=== PATIENT | female | born 1955 | race Caucasian/White ===

== ENCOUNTER 2024-02-09 14:44 | Inpatient (IN) | payer MEDICARE, SELFPAY ==
[2024-02-09 15:08] VITALS: BP 111/63; PULSE 93; RESP 20; TEMP 36.4; O2SAT 99
[2024-02-09] MEDS: Ipratropium/Albuterol Sulfate 3 ML AMPUL.NEB INHALATION (17:18)
[2024-02-09 17:19] VITALS: PULSE 91; RESP 24; O2SAT 96
[2024-02-09] MEDS: Budesonide Respules 0.5 MG/2 ML AMPUL.NEB. INHALATION (17:19)
[2024-02-09 17:25] VITALS: BP 111/63; PULSE 93; RESP 20; TEMP 36.4; O2SAT 99
--- NOTE | 2024-02-09 19:42 | HP.PCM_ITS ---
HPI - General General Date of Admission: 02/09/24 Date of Service: 02/09/24 Chief Complaint: Here for 3 hours daily rehabilitation. HPI Narrative MAX ALFORD, is a 68 Female who presents with followin01/31/2024 Admit to [facility]. 68 year old female with past medical history of CAD, HTN, Hyperlipidemia, PAOD, TIA, COPD, pulmonary emphysema, chronic HFpEF, admitted to the ICU post TNK. She was sent to the [facility] ED by Dr. Cabrera, her fitness club manager after feeling dizzy, off balance, lightheaded, and as if the room was spinning that is worsened when turning her head. She also reported worsening chest pain on exertion with dyspnea and numbness, weakness on her right upper extremity that started today. Recently on prednisone for COPD exacerbation. Afebrile, tachycardic at 110, on baseline oxygen 4 liters per nasal cannula. Brain attack called due to vertigo, right arm numbness, subjective weakness, truncal ataxia. CT head negative, CT abdomen/pelvis negative for aortic dissection. On-call neurologist recommended TNK, TNK given at 1610. CTA neck showed right carotid bulb 25% narrowing, left carotid bulb narrowing 35 to 40%. Prednisone 40mg given, Duoneb x 3 for increased work of breathing. Repeat CT head negative. MRI brain negative for stroke. Carotid doppler showed < 50% stenosis bilaterally. Echo EF 78%, mild to moderate TR. Orthostatics negative. Neurology suspects ongoing vertigo is not related to stroke, recommend vestibular PT. PT recommended acute rehab. 02/08/2024 Feeling improved, read to go to . 02/09/2024 Admit to for 3 hours daily rehabilitation, strengthening, prior to discharge home. [facility] Medical History (Updated 02/09/24 @ 20:[address] Orlin Gardner MD) TIA (transient ischemic attack) SOB (shortness of breath) Depression Peripheral artery disease Glaucoma Cataract Myocardial infarct HTN (hypertension) Hyperlipemia, mixed GERD (gastroesophageal reflux disease) Emphysema lung CHF (congestive heart failure) Anemia Cerebrovascular accident (CVA) Occlusion and stenosis of other cerebral arteries Stroke-like symptoms COPD (chronic obstructive pulmonary disease) Vertigo Diverticulitis Home Medications ?Medication ?Instructions ?Recorded ?Last Taken ?Type albuterol sulfate 90 mcg/actuation 2 puff inhalation Q4H PRN sob, 02/09/24 Unknown History aerosol inhaler wheezing alendronate 70 mg tablet 70 mg PO QWEEK osteoporosis 02/09/24 02/05/24 History aspirin 81 mg chewable tablet 1 tab PO DAILY heart health 02/09/24 02/09/24 History atorvastatin 40 mg tablet (Lipitor) 40 mg PO QHS cholesterol 02/09/24 02/08/24 History budesonide 160 mcg-glycopyr 9 2 inh inhalation BID sob, wheezing 02/09/24 Unknown History mcg-formot 4.8 mcg/actuation HFA inhaler (Breztri Aerosphere) calcium carbonate (Calcium 500) 1,000 mg PO DAILY supplement 02/09/24 Unknown History cholecalciferol (vitamin D3) 25 1,000 unit PO DAILY supplement 02/09/24 02/09/24 History mcg (1,000 unit) capsule cyanocobalamin (vitamin B-12) 1,000 mcg PO DAILY supplement 02/09/24 02/09/24 History 1,000 mcg capsule ferrous sulfate 325 mg (65 mg 325 mg PO DAILY supplement 02/09/24 02/09/24 History iron) tablet icosapent ethyl 1 gram capsule 1 g PO DAILY cholesterol 02/09/24 02/09/24 History (Vascepa) metoprolol succinate 25 mg 25 mg PO DAILY blood pressure 02/09/24 02/08/24 History tablet,extended release 24 hr nystatin 100,000 unit/gram topical 1 applic topical BID readness 02/09/24 02/09/24 History powder (Nystop) sacubitril 49 mg-valsartan 51 mg 1 tab PO BID blood pressure 02/09/24 02/08/24 History tablet (Entresto) sodium chloride 0.65 % nasal spray 2 spray intranasal Q2H PRN dry 02/09/24 02/09/24 History aerosol (Deep Sea Nasal) nasal passages spironolactone 25 mg tablet 12.5 mg PO DAILY blood pressure 02/09/24 02/08/24 History ticagrelor 90 mg tablet (Brilinta) 90 mg PO BID CAD 02/09/24 Unknown History Allergy/AdvReac Type Severity Reaction Status Date / Time acetylcysteine Allergy Unknown bronchospam Verified 02/09/24 14:58 Family History (Updated 02/09/24 @ 15:53 by Susan Peterson) Mother Arthritis Diabetes Breast cancer Heart disease Hypertension CVA (cerebral vascular accident) Mother No problems noted. Father Alcohol abuse COPD (chronic obstructive pulmonary disease) CVA (cerebral vascular accident) Brother Alcohol abuse COPD (chronic obstructive pulmonary disease) Cancer Daughter Asthma Surgical History (Updated 02/09/24 @ 19:[address] Orlin Gardner MD) History of procedure for peripheral vascular disease History of coronary artery stent placement History of History of cataract surgery History of cardiac catheterization History of hysterectomy Social History (Updated 02/09/24 @ 19:[address] Orlin Gardner MD) household members: children Smoking Status: Former smoker alcohol intake: never substance use type: does not use ROS Constitutional Constitutional: Denies chills, fever(s) or weight gain ENT HEENT: Denies headache(s), nasal congestion or nasal discharge Cardiovascular Cardiovascular: Denies chest pain or palpitations Respiratory/Chest Respiratory/Chest: Denies cough, excessive phlegm production or shortness of breath with exertion Gastrointestinal Gastrointestinal: Denies abdominal pain, nausea or vomiting Genitourinary Genitourinary: Denies dysuria Musculoskeletal Musculoskeletal: Denies joint pain or joint swelling Integumentary Integumentary: Denies rash or wounds Neurologic Neurologic: Denies focal weakness, numbness or tingling Psychiatric Psychiatric: Denies anxiety, auditory hallucinations, depression, homicidal ideation or suicidal ideation Vital Signs Vital Signs Vital Signs: 02/09/24 15:08 02/09/24 17:19 02/09/24 17:19 Temperature 97.6 F L Temperature Source Temporal Pulse Rate 93 91 Respiratory Rate 20 H 24 H Respiratory Pattern Tachypnea Blood Pressure 111/63 Blood Pressure Mean 79 Blood Pressure Source Monitor Blood Pressure Position Sitting Blood Pressure Location Right Arm Pulse Ox 99 96 Oxygen Delivery Method Nasal Cannula Nasal Cannula Oxygen Flow Rate (L/min) 2 02/09/24 17:25 Temperature 97.6 F L Temperature Source Temporal Pulse Rate 93 Respiratory Rate 20 H Respiratory Pattern Blood Pressure 111/63 Blood Pressure Mean 79 Blood Pressure Source Monitor Blood Pressure Position Sitting Blood Pressure Location Right Arm Pulse Ox 99 Oxygen Delivery Method Nasal Cannula Oxygen Flow Rate (L/min) 2 Indicators for Scoring Admitted with or Primary Diagnosis of CVA/Stroke: Yes Hx of CVA/Stroke: Yes Modified [place] Score MRS Score at time of Evaluation: 3-Moderate disability NIHSS NIHSS 1a. Level of Consciousness: Alert; keenly responsive 1b. LOC Questions: Answers BOTH questions correctly. 1c. LOC Commands: Performs both tasks correctly. 2. Best Gaze: Normal 3. Visual: No visual loss 4. Facial Palsy: Normal symmetrical movements 5a. Left Arm: No drift; arm holds 90 (or 45) degrees for full 10 seconds 5b. Right Arm: No drift; arm holds 90 (or 45) degrees for full 10 seconds 6a. Left Leg: No drift; leg holds 30-degree position for full 5 seconds 6b. Right Leg: No drift; leg holds 30-degree position for full 5 seconds 7. Limb Ataxia: Absent 8. Sensory: [id number] sensory loss; 9. Best Language: No aphasia; normal 10. Dysarthria: Normal 11. Extinction and Inattention: No abnormality Total: 1 Stroke Questions Stroke Team Activated: Yes a.Reviewed Inclusion/Exclusion criteria: Yes Was Patient considered for Endovascular Intervention?: No IV Thrombolytic Administered: Yes No contraindications from thrombolytic administration: Yes Risks, Benefits, Alternatives Discussed: Yes Physical Exam Const alert General Appearance: cooperative HEENT normocephalic Eyes PERRL and EOMs intact bilaterally Neck supple, no JVD and no carotid bruits Resp normal respiratory effort, normal air movement and clear to auscultation bilaterally Cardio regular rate and regular rhythm GI normal to inspection, nondistended, normoactive bowel sounds, non-tender and non-distended Extremity normal capillary refill General Extremity: Negative for edema Skin no rashes or lesions noted General Skin Exam: no breakdown Psych affect normal Appearance: appropriate Assessment & Plan Assessment/Plan (1) Debility: (2) TIA (transient ischemic attack): (3) Vertigo: (4) Osteoporosis: (5) COPD (chronic obstructive pulmonary disease): (6) Hyperlipidemia: (7) Calcium deficiency: (8) Vitamin D deficiency: (9) Vitamin B12 deficiency: (10) Iron deficiency anemia: (11) Coronary artery disease: (12) Chronic heart failure with preserved ejection fraction (HFpEF): PLAN: Plan 68 year old female with below past medical history hospitalized for stroke symptoms, TNK administered, MRI brain negative for stroke, admitted to with debility, here for 3 hours daily rehabilitation, strengthening, prior to discharge home. * Debility - PT/OT/ST. * Pain - Tylenol 650mg q6 prn. * Bowel - senna/colace 2 tablets bid, Dulcolax 10mg pr x 1 prn, MOM 30ml po x 1 pm. * DVT prophylaxis - Hold, on dual antiplatelet therapy. * COPD - Budesonide 0.5mg inhaled Q12, Duoneb 3ml q6wa, Albuterol 2 puffs q4 prn. * Osteoporosis - Alendronate 70mg qweek. * TIA - Aspirin 81mg daily. Brilinta 90mg bid. * Hyperlipidemia - Atorvastatin 40mg qhs, Vascepa 1gm daily. * Calcium deficiency - Calcium 1000mg daily. * Vitamin D deficiency - D3 25mcg daily. * Vitamin B12 deficiency - B12 1000mcg daily. * Iron deficiency anemia - Ferrous sulfate 325mg daily. * HFpEF - Metoprolol succinate 25mg daily, Entresto 49/51mg bid, Wtdqmgywl80.5mg daily. * Coronary artery disease - Metoprolol succinate 25mg daily, Brilinta 90mg bid, Aspirin 81mg daily. * Tinea Corporis - Nystatin powder topical bid. * Dry nose - sodium chloride 2 sprays q2h prn.
[2024-02-09 20:00] VITALS: PULSE 93; RESP 20; O2SAT 99
[2024-02-09] MEDS: Albuterol IH (6.7 GM) 1 PUFF INHALER 2 PUFF INHALATION (20:17)
[2024-02-09] MEDS: Atorvastatin Calcium 40 MG Tablet PO (20:21)
[2024-02-09] MEDS: Senna/Docusate Sodium 1 Tablet 2 TABLET PO (20:21)
[2024-02-09] MEDS: Nystatin Powder 15gm Bottle 1 APPLIC TOPICAL (20:22)
[2024-02-09] MEDS: TICAGRELOR 90 MG TABLET PO (20:22)
[2024-02-09] MEDS: SACUBITRIL/VALSARTAN 49-51 MG TABLET 1 EACH PO (20:22)
[2024-02-09 22:00] VITALS: BMI 25.7
--- NOTE | 2024-02-09 22:46 | NURSING ---
pt assisted to the bcs and then became sob and breathing through pursed lips. staff assisted pt to the bed and spo2 was checked and was 100% on ra. pt stated this is what always happens my spo2 is fine but i become very sob like i'm breathing through a straw. unable to give breathing tx d/t not time. rn to call hospitalist
--- NOTE | 2024-02-09 22:52 | PCM.HOSP.N ---
Hospitalist Note Patient requesting change to her albuterol. Will transition to neb albuterol per RT q 2 hours PRN. Patient also noting high anxiety and specifically requesting something to help her calm down. Will trial low dose buspar x 1.
--- NOTE | 2024-02-09 22:54 | NURSING ---
After transfering from BSC to bed, pt was struggling with SOB. Pt was becoming anxious and asking when next breathing treatment was due. This RN paged Hospitalist re: SOB @ 22:45 for pt with no breathing treatment available under current MAR regime. Pt was anxious and pursed lip breathing. SpO2 was @ 100% and O2 @ 2L. Hospitalist, Dr Ibarra, put in a N/O for Albuterol 2.5mg Q2H/PRN and Buspar X1 dose of 5mg tab for anxiety. GLUE BONE CRUSHER called RT to admin breathing tx.
[2024-02-09 23:05] VITALS: PULSE 109; RESP 26; O2SAT 97
[2024-02-09] MEDS: Albuterol 2.5 MG/3 ML VIAL.NEB. INHALATION (23:05)
[2024-02-09] MEDS: busPIRone 5 MG Tablet PO (23:20)
[2024-02-10] VITALS (12 sets, daily range): BP systolic 96–110; BP diastolic 48–66; PULSE 77–120; RESP 18–28; TEMP 36.7–36.8; O2SAT 96–99; BMI 25.7
[2024-02-10] MEDS: Albuterol 2.5 MG/3 ML VIAL.NEB. INHALATION ×4 (03:09→23:30)
[2024-02-10 05:48] LABS: Absolute Lymphocyte Count 2.42 X10^3/uL (0.83-4.51); Absolute Neutrophil Count 6.8 X10^3/uL (2.0-7.7); Basophil# 0.07 X10^3/uL; Basophil% 0.6 % (0-1); Eosinophil# 0.41 X10^3/uL; Eosinophils% 3.7 % (0-5); Hematocrit 29.1 % (37-47); Hemoglobin 9.3 g/dL (12.0-15.0); Lymphocyte # 2.42 X10^3/ul (0.83-4.51); Lymphocyte % 22.1 % (19-41); Mean Corpuscular Hgb 29.8 pg (27.0-32.0); Mean Corpuscular Volume 93.3 fL (81-99); Mean Platelet Vol. 9.7 fl (6.2-12.0); Monocyte% 7.3 % (0-10); NRBC Flagged by Analyzer 0.2 % (0-5); Neutrophil # 6.81 X10^3/uL (2.7-7.7); Neutrophil % 62.3 % (47-70); Platelet Count 286 K/mm3 (150-450); RBC Distribution Width CV 14.9 % (11.6-14.6); RBC Distribution Width SD 50.6 fl (35.1-43.9); Red Blood Count 3.12 M/mm3 (4.2-5.4)
[2024-02-10 06:42] LABS: ALB/GLOB Ratio 0.9 RATIO (0.9-2.4); AST(SGOT) 19 U/L (15-37); Alanine Aminotransfer ALT/SGPT 26 U/L (13-56); Albumin, Serum 2.9 g/dL (3.2-5.0); Alkaline Phosphatase 83 U/L (45-117); Anion Gap 6 (5-15); BUN 20 mg/dL (7-18); BUN/Creat Ratio 23.1 RATIO (10-20); Chloride 104 mmol/L (98-107); Creatinine, Serum 0.87 mg/dL (0.55-1.02); EST Glomerular Filtration Rate 69 mL/min (>60); Est Glom Filt Rate - Afr Amer 83 mL/min (>60); Estimated Creatinine Clearance 55.69 ml/min; Globulin 3.2 g/dL (2.2-4.2); Glucose 122 mg/dL (74-106); Phosphorus 3.5 mg/dL (2.5-4.9); Potassium 3.9 mmol/L (3.5-5.1); Protein, Total 6.1 g/dL (6.4-8.2); Sodium Level 136 mmol/L (136-145)
[2024-02-10] MEDS: Calcium (Elemental) 500 MG Tablet 1000 MG PO (08:10)
[2024-02-10] MEDS: Cholecalciferol (VIT D3) 25 MCG TABLET (1,000 UNITS) PO (08:10)
[2024-02-10] MEDS: TICAGRELOR 90 MG TABLET PO ×2 (08:10→21:00)
[2024-02-10] MEDS: Cyanocobalamin 500 MCG Tablet 1000 MCG PO (08:10)
[2024-02-10] MEDS: Senna/Docusate Sodium 1 Tablet 2 TABLET PO (08:11)
[2024-02-10] MEDS: Aspirin 81 MG TAB.CHEW PO (08:11)
[2024-02-10] MEDS: Ferrous Sulfate 325 MG Tablet PO (08:11)
[2024-02-10] MEDS: Spironolactone 25 MG Tablet 12.5 MG PO (08:13)
[2024-02-10] MEDS: SACUBITRIL/VALSARTAN 49-51 MG TABLET 1 EACH PO (08:13)
[2024-02-10] MEDS: Metoprolol(XL)Succ 25 MG Tablet PO (08:13)
[2024-02-10] MEDS: Budesonide Respules 0.5 MG/2 ML AMPUL.NEB. INHALATION ×2 (08:15→19:00)
[2024-02-10] MEDS: Ipratropium/Albuterol Sulfate 3 ML AMPUL.NEB INHALATION ×2 (08:15→19:00)
--- NOTE | 2024-02-10 09:31 | PCM.PROGNOTE ---
Subjective Subjective Afebrile VSS -persistently tachycardic since last evening with a heart rate ranging from 102 2018. Blood pressure is ranged from 103/61 to 111/63 since last evening. Respiratory rate is increased mildly and ranged from 20-28. She was 99% on room air this morning. Maintaining appropriate oxygen saturation on RA Oral intake - FOOD good FLUIDS poor Discussed with nursing - nursing reports the patient is very anxious. Needs a lot of reassurance. She was given 1 dose of BuSpar 5 mg last night by the night hospitalist. Reviewed the THERAPY notes Medication list reviewed. Receiving aerosolized budesonide twice daily. Also on ipratropium every 6 hours. Albuterol is ordered as needed for dyspnea. All lab drawn this morning was personally reviewed. White blood cell count is 11. Hemoglobin is 9.3 with an MCV of 93.3 and an elevated RDW. Platelets are within normal limits. Differential is unremarkable. Sodium is 136 and the potassium is 3.9. Serum bicarb is normal at 26. The BUN is elevated at 20 with a creatinine of 0.87. We have no baseline lab on this patient. Fasting glucose is elevated at 122. Phosphorus and magnesium are normal. LFTs are unremarkable EMR/H&P reviewed. Past medical history is significant for coronary artery disease, history of PCI, hypertension, hyperlipidemia, TIA, COPD, chronic heart failure with preserved ejection fraction, diverticulosis and peripheral vascular disease, history of femoral stent. Was admitted to [facility] on 01/31/2024 with complaints of vertigo, paresthesias right arm, subjective weakness and truncal ataxia. Stat noncontrast CT brain was negative and she received TNK. CTA of the neck showed no significant vascular disease. Brain MRI was negative for stroke. Echocardiogram showed a 78% EF with mild to moderate TR. n she had been taking Prednisone 50 mg daily for 14 days and then abruptly stopped with njo taper. She [id number] takes steroids for smothering. Denies cough. Quit smoking 2 years ago....started at 12 YOA. 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 Took a few doses of Valium a few years ago and it really helped her breathing. Has never been treated for anxiety or depression. Tells me that it sometimes takes hours for her to fall asleep at night and then she can not stay asleep. she has been tested for KENNY and tested negative. Naps during the day and feels exhausted. Denies any history of pulmonary emboli/DVT. Chronically using her rescue inhaler every 2 hours. Objective Data Objective Data Vital Signs: Vital Signs Temp Pulse Resp BP Pulse Ox O2 Del Method O2 Flow Rate 98.2 F 118 H 28 H 103/61 96 Nasal Cannula 2 02/10/24 05:04 02/10/24 08:15 02/10/24 08:15 02/10/24 05:05 02/10/24 08:13 02/10/24 08:13 02/10/24 08:13 Oxygen Flow Rate (L/min) 2 Oxygen Delivery Method Nasal Cannula Weight: 145 lb 4.554 oz Body Mass Index (BMI) 25.7 Intake & Output: Intake and Output for Last 24 Hours 02/08/24 02/09/24 02/10/24 23:59 23:59 23:59 Intake Total 400 / 400 200 / 200 Output Total 300 / 300 650 / 650 Balance 100 / 100 -450 / -450 Lab / Micro Data 02/10/24 05:15 02/10/24 05:15 Labs: Laboratory Results - last 24 hr 02/10/24 05:15: WBC 11.0, RBC 3.12 L, Hgb 9.3 L, Hct 29.1 L, MCV 93.3, MCH 29.8, MCHC 32.0, RDW Std Deviation 50.6 H, RDW Coeff of Matty 14.9 H, Plt Count 286, MPV 9.7, Immature Gran % (Auto) 4.000 H, Neut % (Auto) 62.3, Lymph % (Auto) 22.1, [place] % (Auto) 7.3, Eos % (Auto) 3.7, Baso % (Auto) 0.6, Absolute Neuts (auto) 6.8, Absolute Lymphs (auto) 2.42, Nucleated RBC % 0.2, Sodium 136, Potassium 3.9, Chloride 104, Carbon Dioxide 26.0, Anion Gap 6, BUN 20 H, Creatinine 0.87, Estim Creat Clear Calc 55.69, Est GFR (MDRD) Af Amer 83, Est GFR (MDRD) Non-Af 69, BUN/Creatinine Ratio 23.1 H, Glucose 122 H, Calcium 9.0, Phosphorus 3.5, Magnesium 2.0, Total Bilirubin 0.30, AST 19, ALT 26, Alkaline Phosphatase 83, Total Protein 6.1 L, Albumin 2.9 L, Globulin 3.2, Albumin/Globulin Ratio 0.9 Physical Exam Const alert Constitutional Narrative: she is pursed lip breathing long after she is at rest. Can speak in long sentences and paragraphs with no conversational dyspnea but, the minute she is not talking she is pursed lip breathing again. I watched her do the IS. she did 5 breaths......the first was between 750-1,000 and by breath 5 she was down to 500. Very poor exercise tolerance. Does not exercise........has been in pulmonary rehab in the past but, not recently. Anxious. General Appearance: cooperative HEENT normocephalic HEENT Narrative: No facial asymmetry Resp Resp Narrative: Pursed lip breathing when she is not speaking but she has no conversational dyspnea and can complete multiple strong together sentences with no shortness of breath. No cough. No wheezing. Few coarse crackles in both bases, left greater than right. No accessory muscle use. Pendulous breasts. Tells me she used to weigh 99 pounds but the steroids increased her weight which is currently 145 pounds. Cardio Cardio Narrative: Distant heart sounds. No murmur appreciated. Heart rate is increased into the low 100s even at rest. No gallop. GI normal to inspection, nondistended, normoactive bowel sounds, soft to palpation and non-tender GI Narrative: truncal obesity. Psych thought process normal and cooperative Psych Narrative: talkative and pleasant. Having panic attacks........associates this with smothering but, no wheezing with fair air exchange and no conversational dyspnea. Appearance: appropriate Mood & Affect: anxious Assessment & Plan Assessment/Plan (1) Debility: (2) TIA (transient ischemic attack): (3) Coronary artery disease: QUALIFIERS: Associated angina: unspecified whether angina present Coronary Disease-Associated Artery/Lesion type: unspecified vessel or lesion type [place] vs. transplanted heart: [place] heart Qualified Code(s): I25.10 - Atherosclerotic heart disease of [place] coronary artery without angina pectoris (4) Chronic heart failure with preserved ejection fraction (HFpEF): (5) COPD (chronic obstructive pulmonary disease): QUALIFIERS: COPD type: emphysema Emphysema type: unspecified Qualified Code(s): J43.9 - Emphysema, unspecified (6) Anxiety disorder due to general medical condition with panic attack: (7) Tachycardia: (8) Impaired exercise tolerance: (9) Chronic insomnia: PLAN: Plan 1. Continue therapy 2. Xanax 0.25 mg p.o. now 3. Start BuSpar 5 mg p.o. 3 times daily 4. Check a TSH due to tachycardia 5. Patient is on very frequent steroids and was recently on high-dose steroids for 14 days with no taper. Will check a Cortrosyn stim test today. 6. We discussed the contribution of uncontrolled anxiety to her perceived SOB and the need to treat the anxiety to decrease her SOB. 7. Klonopin 0.5 mg at HS X 2 doses. 8. Hemoccult stool 9. Check iron studies Charges/Coding Visit Charges Inpatient E&M: 64557 Subs Hosp L2
[2024-02-10 10:09] LABS: Hemoglobin A1c 6.8 % (3.8-5.6)
[2024-02-10 11:35] LABS: Ferritin 471 ng/mL (8-252); Iron 61 ug/dL (50-170); Iron Binding Capacity,Total 341 ug/dL (250-450); PERCENT IRON SATURATION 17.9 % (15.0-55.0); T4 Free Direct 0.89 ng/dL (0.76-1.46)
[2024-02-10] MEDS: ALPRAZolam 0.25 MG Tablet PO (12:03)
[2024-02-10] MEDS: busPIRone 5 MG Tablet PO ×2 (14:09→21:00)
--- NOTE | 2024-02-10 14:35 | CASEMGMT ---
Social Work SW met with patient to complete initial assessment. Throughout discussion, pt made comments on having financial strain. SW explored Medicaid to assist. Pt stated she has funds in her savings to pay for expenses which makes her over resources for [facility]. SW educated to turning those funds over to the home, make it irrevocable, and it will be out of her personal savings, which will not count as assets. SW explained she can arrange that during her stay, if she wishes. Pt interested. SW explained this worker can still make a Care Coordination referral to assist with connecting her with community resources, such as transportation, but to notify this worker if pt does contact the home, and SW can refer to [facility] for [facility] application completion. Pt expressed understanding. SW placed Care Coordination referral via secure website. Will continue to follow for DC planning and support. LILIAM Tan
--- NOTE | 2024-02-10 14:58 | CASEMGMT ---
Social Work SW requested pt have dtr provide copies of advanced directives. Meli Reyna, IRRIGATION TECHNICIAN SPRINKLING SYSTEM IRRIGATOR
[2024-02-10] MEDS: clonazePAM 0.5 MG Tablet PO (21:00)
[2024-02-10] MEDS: Atorvastatin Calcium 40 MG Tablet PO (21:00)
--- NOTE | 2024-02-10 23:54 | NURSING ---
Pt to have cortisol lab draw in am, and will need IV access, pt is awake and ok with IV start, attempted x2, unsuccessful, RN supervisor home restoration service called to try.
[2024-02-11] VITALS (10 sets, daily range): BP systolic 100–116; BP diastolic 61–70; PULSE 75–105; RESP 18–20; TEMP 36.3–36.7; O2SAT 92–100; BMI 25.9
--- NOTE | 2024-02-11 01:08 | NURSING ---
RN air traffic supervisor attempted to start IV, unsuccessful x3, pt refusing to let staff attempt again at this time, will reevaluate in AM and talk to Dr. Cameron about options.
[2024-02-11] MEDS: busPIRone 5 MG Tablet PO ×3 (05:34→21:11)
[2024-02-11] MEDS: Budesonide Respules 0.5 MG/2 ML AMPUL.NEB. INHALATION ×2 (06:10→21:31)
[2024-02-11] MEDS: Albuterol 2.5 MG/3 ML VIAL.NEB. INHALATION ×2 (06:10→17:42)
[2024-02-11] MEDS: Cholecalciferol (VIT D3) 25 MCG TABLET (1,000 UNITS) PO (08:05)
[2024-02-11] MEDS: Cyanocobalamin 500 MCG Tablet 1000 MCG PO (08:05)
[2024-02-11] MEDS: Spironolactone 25 MG Tablet 12.5 MG PO (08:05)
[2024-02-11] MEDS: Calcium (Elemental) 500 MG Tablet 1000 MG PO (08:06)
[2024-02-11] MEDS: TICAGRELOR 90 MG TABLET PO ×2 (08:06→21:11)
[2024-02-11] MEDS: Ferrous Sulfate 325 MG Tablet PO (08:06)
[2024-02-11] MEDS: Aspirin 81 MG TAB.CHEW PO (08:06)
[2024-02-11] MEDS: Ipratropium/Albuterol Sulfate 3 ML AMPUL.NEB INHALATION ×2 (11:30→21:31)
--- NOTE | 2024-02-11 15:15 | PN_ITS ---
Subjective Subjective Afebrile VSS - Maintaining appropriate oxygen saturation on RA Oral intake - FOOD good FLUIDS fair to good Discussed with nursing -night nursing reports that she slept much better last night and seems to be less anxious. Her nurse today states that the pursed lip breathing resolves when you can distract her. Still pursed lip breathing occasionally. Reviewed the THERAPY notes Medication list reviewed. Entresto has been held the past 2 days due to low blood pressures. She had albuterol 4 times yesterday but is only had 1 albuterol today and that was at 06:10 AM. Cortrosyn stimulation test could not be done because the nurses were unable to start an IV. Also the cortisol measuring machine has been out of action for the past week. Ferritin, serum iron and percent iron saturation are all within normal limits. LFTs are normal. Hemoglobin A1c is 6.8%. TSH is elevated at 8.03 but the free T4 is normal at 0.89. Hemoccult stool was negative. She denies cough. she is c/o smothering episodically. When I initially went into her room today she was reading and had no pursed lip breathing. She had no conversational dyspnea and she was not coughing. When we started to talk about anxiety she began pursed lip breathing again. She tells me that cardiology tells her it is not her heart that makes her short of breath that is her lungs. The pulmonary doctor tells her it is not her lungs that her lungs are clear and her oxygenation is good but she has shortness of breath due to her heart. She is confused by this. She denies nausea, abdominal cramping, abdominal pain. Not complaining of chest pain today. Objective Data Objective Data Vital Signs: Vital Signs Temp Pulse Resp BP Pulse Ox O2 Del Method O2 Flow Rate 98.0 F 105 H 20 H 100/61 92 Nasal Cannula 2 02/11/24 05:35 02/11/24 11:30 02/11/24 11:30 02/11/24 08:04 02/11/24 11:30 02/11/24 11:30 02/11/24 14:10 Oxygen Flow Rate (L/min) 2 Oxygen Delivery Method Nasal Cannula Weight: 146 lb 6.191 oz Body Mass Index (BMI) 25.9 Intake & Output: Intake and Output for Last 24 Hours 02/09/24 02/10/24 02/11/24 23:59 23:59 23:59 Intake Total 400 / 400 1160 / 1160 540 / 540 Output Total 300 / 300 2350 / 2350 500 / 500 Balance 100 / 100 -1190 / -1190 40 / 40 Lab / Micro Data 02/10/24 05:15 02/10/24 05:15 Micro: Microbiology 02/10/24 09:49 Stool Stool Occult Blood (KAREL) - Final Physical Exam Const alert Constitutional Narrative: Very talkative, pleasant, appropriate. General Appearance: cooperative Resp Resp Narrative: No conversational dyspnea. Few coarse crackles in the bases bilaterally but no wheezing with fair air exchange. No cough with deep breathing. She tells me she does get short of breath with exertion. Admits to being deconditioned due to minimal exercise/activity at home for months. Effort and Inspection: Negative for tachypneic, respiratory distress, labored or uses accessory muscles Auscultation: diminished lung sounds Cardio regular rate, regular rhythm and no gallops Cardio Narrative: No ectopy GI normal to inspection, nondistended, normoactive bowel sounds, soft to palpation and non-tender Extremity no calf tenderness General Extremity: Negative for edema Skin General Skin Exam: no breakdown Psych cooperative Psych Narrative: Less anxious today. Assessment & Plan Assessment/Plan (1) Debility: (2) TIA (transient ischemic attack): (3) Coronary artery disease: QUALIFIERS: Coronary Disease-Associated Artery/Lesion type: u nspecified vessel or lesion type [place] vs. transplanted heart: [place] heart A ssociated angina: unspecified whether angina present Qualified Code(s): I25.10 - Atherosclerotic heart disease of [place] coronary artery without angina pectoris (4) Chronic heart failure with preserved ejection fraction (HFpEF): (5) COPD (chronic obstructive pulmonary disease): QUALIFIERS: COPD type: emphysema Emphysema type: unspecified Q ualified Code(s): J43.9 - Emphysema, unspecified (6) Anxiety disorder due to general medical condition with panic attack: (7) Tachycardia: (8) Impaired exercise tolerance: (9) Chronic insomnia: PLAN: Plan 1. Continue therapy 2. Continue BuSpar 5 mg 3 times daily. She is less anxious today. Will receive Klonopin 0.5 mg again tonight at at bedtime for insomnia. She tells me that she slept better but, not good. If that is the case again today then will increase the dose to 1 mg at 9 PM nightly. Her problem primarily seems to be be anxiety and not depression. Continue to monitor for any sx of depression.......would consider adding an SSRI if this happens. 3. Continue DuoNeb aerosols every 6 hours and budesonide every 12 hours. She is using albuterol less since we are treating her anxiety. Will continue to monitor albuterol use. Lungs are clear to auscultation except for mild coarse crackles in the bases. Pursed lip breathing is better today but she still does this occasionally when anxious. She has no conversational dyspnea at all. She is not tachypneic when she is in her room by herself and is not pursed lip breathing. Pursed lip breathing stops when she can be distracted. 4. Prior to discharge will need to repeat pulse ox on room air at rest and following exertion to determine if she will need home O2. 5. Blood pressures are on the low side on metoprolol 25 mg daily. We have had to hold the Entresto for the past 2 days due to low blood pressure. I suspect she has a component of adrenal insufficiency due to frequent high-dose steroids but unable to do the Cortrosyn stimulation test secondary to the equipment not working and not being able to start an IV. Will check with the lab on Wednesday to see if the machine that measures the cortisol is fixed. Consider starting Prednisone 10- mg daily if the BP remains low. Charges/Coding Visit Charges Inpatient E&M: 51529 Subs Hosp L1
--- NOTE | 2024-02-11 15:42 | PCM.RU.PYE ---
Admission Information Primary Diagnosis:: ischemic CVA/TIA Status Changes from Prescreening?: No changes Identified Actual Problem List:: Alteration in Sleep, Mobility Impaired, Self Care Deficit, Know.Dfct of Medicaitons, BP, Hypotension, Alteration/ Air Exchange and Alteration-Leisure Activ. Potential Problem List:: DVT, Bleeding, Infection, UTI, Aspiration, Falls, Skin Integrity and Depression Risk of Complications DVT: LMWH and CR Hose Bleeding: Monitor Lab Values, Nursing to Teach Precautions for anti-coagulation therapy., Wound, if applicable, to be assessed every shift. and Stroke patients assessed for lethargy or change in status. Infection: Clinical Staff to Monitor for S/S of infection: and S/S of infection include fever, redness, warmth, etc. Urinary Tract Infection: Monitor for frequency, burning, discomfort, or incontinence. and Nursing will obtain urine sample for urinalysis and C&S when ordered. Aspiration: Clinical staff will monitor for coughing, drooling, congestion., Speech will evaluate swallowing and dsyphasia. and Nursing will monitor patient swallowing during meals. Falls: Patient will be evaluated for Fall Precautions and Patient will be placed on Fall Precautions as indicated per protocol. Skin Breakdown: Nursing will assess skin daily using assessment tool. and Nursing will place on Skin Breakdown Precautions as indicated. Pain: Clinical staff will assess patient's pain level per protocol., Medications will be given, if needed, and the pain level reassessed. and Other methods: Massage, distraction, decrease stimulus, etc. used PRN. Plan of Care Patient requires physician specializing in physical medicine and rehab oversight to provide close medical supervision of rehab issues including: Pain Management, Sleep Problems, Bowel and Bladder, Medical and co-morbidity Management, DVT prophylaxis, Rehabilitation Leadership and Coordination of treatment team Patient needs Physical Therapy: For a minimum of 1 hour and At least 5 out of 7 days Patient needs Physical Therapy to improve:: Mobility, Strengthening, Transfers, Stretching, ROM, Endurance, Stairs, Gait and Balance Patient needs Occupational Therapy: For a minimum of 1 hour and At least 5 out of 7 days Patient needs Occupational Therapy to improve ADL's incl.: Eating, Grooming, Bathing, Dressing, Toileting, Toilet transfers, Community Reintegration, Higher functioning activities, Household tasks, Adaptive Equipment, Splinting and Other activities as determined Patient requires speech therapy: For a minimum of 1 hour and At least 5 out of 7 days Patient requires speech therapy for: Swallowing, Cognition, Language Skills and Compensatory Strategies Patient requires 24/ Rehabilitation Nursing for: Pain Issues, Identifying and preventing risk factors, Monitoring and reporting current medical conditions, Assisting with ambulation, transfer, and all ADL's, Teaching patients about disease process and medications, Family teaching, Providing safe environment, Bowel and Bladder Issues, Skin integrity and Medication Management Patient needs Customer Expert/ Case Management for: Discharge Planning, Arranging Home Equipment or Services and Family Interventions Patient needs Dietary and Nutrition Services for: Adequate Nutrition, Nutritional Supplements and Nutritional Education Goals Goals Patient will remain: free from falls Patient will perform eating at: MOD I level of assist. Patient will perform bed mobility at: MOD I level of assist. Patient will complete transfers from bed to chair at: - (Supervision) Patient will ambulate: - (150 feet with least restrictive device) Patient will complete upper body dressing at: MOD I level of assist. Patient will complete lower body dressing at: MOD I level of assist. Patient will complete toilet transfer at: MOD I level of assist. Patient will complete toileting at: MOD I level of assist. Patient will perform bathing at: MOD I level of assist. (With adaptive equipment as needed for lower body bathing) Patient will perform Tub/Shower transfer at: - (Supervision) Patient will complete grooming at: MOD I level of assist. Patient will complete home management skills at: MOD I level of assist. Patient will achieve: - (2 steps with no handrail at contact-guard assist) Patient will have pain level of: of 3 or less Patient's skin will: remain intact Patient will receive: adequate nutrition. Discharge Planning Pt Prognosis for Sig. Practical Improv. w/in Reasonable Time: Good Estimated Length of stay (days): 21 Anticipated D/C Destination: Home with Home Health Was Preadmission Assessment Accurate?: Yes
[2024-02-11] MEDS: clonazePAM 0.5 MG Tablet PO (21:10)
[2024-02-11] MEDS: SACUBITRIL/VALSARTAN 49-51 MG TABLET 1 EACH PO (21:10)
[2024-02-11] MEDS: Nystatin Powder 15gm Bottle 1 APPLIC TOPICAL (21:13)
[2024-02-11] MEDS: Atorvastatin Calcium 40 MG Tablet PO (21:13)
[2024-02-12] VITALS (11 sets, daily range): BP systolic 91–108; BP diastolic 49–63; PULSE 64–110; RESP 14–24; TEMP 36.2–36.5; O2SAT 98–100; BMI 25.9
[2024-02-12] MEDS: Albuterol 2.5 MG/3 ML VIAL.NEB. INHALATION (03:13)
[2024-02-12] MEDS: Alendronate Sodium 70 MG Tablet PO (06:18)
[2024-02-12] MEDS: busPIRone 5 MG Tablet PO ×3 (06:18→21:01)
[2024-02-12] MEDS: Nystatin Powder 15gm Bottle 1 APPLIC TOPICAL ×2 (06:21→21:02)
[2024-02-12] MEDS: Calcium (Elemental) 500 MG Tablet 1000 MG PO (08:40)
[2024-02-12] MEDS: Cholecalciferol (VIT D3) 25 MCG TABLET (1,000 UNITS) PO (08:40)
[2024-02-12] MEDS: Cyanocobalamin 500 MCG Tablet 1000 MCG PO (08:40)
[2024-02-12] MEDS: Ferrous Sulfate 325 MG Tablet PO (08:40)
[2024-02-12] MEDS: Enoxaparin 40 MG/0.4 ML Syringe SC (08:41)
[2024-02-12] MEDS: TICAGRELOR 90 MG TABLET PO ×2 (08:41→21:01)
[2024-02-12] MEDS: Aspirin 81 MG TAB.CHEW PO (08:41)
[2024-02-12] MEDS: Ipratropium/Albuterol Sulfate 3 ML AMPUL.NEB INHALATION ×2 (13:29→19:06)
[2024-02-12] MEDS: predniSONE 5 MG Tablet PO (14:39)
[2024-02-12] MEDS: Atorvastatin Calcium 40 MG Tablet PO (21:02)
[2024-02-13] VITALS (10 sets, daily range): BP systolic 117–133; BP diastolic 50–88; PULSE 79–110; RESP 18–24; TEMP 36.4–36.6; O2SAT 97–99; BMI 25.8
[2024-02-13] MEDS: Albuterol 2.5 MG/3 ML VIAL.NEB. INHALATION (02:55)
[2024-02-13] MEDS: Nystatin Powder 15gm Bottle 1 APPLIC TOPICAL ×2 (06:10→21:37)
[2024-02-13] MEDS: busPIRone 5 MG Tablet PO ×3 (06:10→21:36)
[2024-02-13] MEDS: Ipratropium/Albuterol Sulfate 3 ML AMPUL.NEB INHALATION ×3 (07:40→18:49)
[2024-02-13] MEDS: Enoxaparin 40 MG/0.4 ML Syringe SC (08:01)
[2024-02-13] MEDS: Cholecalciferol (VIT D3) 25 MCG TABLET (1,000 UNITS) PO (08:02)
[2024-02-13] MEDS: Ferrous Sulfate 325 MG Tablet PO (08:02)
[2024-02-13] MEDS: SACUBITRIL/VALSARTAN 49-51 MG TABLET 1 EACH PO ×2 (08:02→21:36)
[2024-02-13] MEDS: Spironolactone 25 MG Tablet 12.5 MG PO (08:02)
[2024-02-13] MEDS: TICAGRELOR 90 MG TABLET PO ×2 (08:02→21:36)
[2024-02-13] MEDS: Cyanocobalamin 500 MCG Tablet 1000 MCG PO (08:02)
[2024-02-13] MEDS: Aspirin 81 MG TAB.CHEW PO (08:03)
[2024-02-13] MEDS: Metoprolol(XL)Succ 25 MG Tablet PO (08:03)
[2024-02-13] MEDS: Calcium (Elemental) 500 MG Tablet 1000 MG PO (08:03)
[2024-02-13] MEDS: predniSONE 5 MG Tablet PO (08:03)
[2024-02-13] MEDS: Psyllium 1 PACKET PO (08:04)
[2024-02-13] MEDS: Senna/Docusate Sodium 1 Tablet 2 TABLET PO (11:10)
[2024-02-13] MEDS: Atorvastatin Calcium 40 MG Tablet PO (21:36)
[2024-02-14] VITALS (10 sets, daily range): BP systolic 112–137; BP diastolic 83–86; PULSE 88–104; RESP 16–26; TEMP 36.6–36.7; O2SAT 97–99; BMI 25.8
[2024-02-14] MEDS: Albuterol 2.5 MG/3 ML VIAL.NEB. INHALATION (00:12)
[2024-02-14] MEDS: busPIRone 5 MG Tablet PO ×3 (05:02→22:29)
[2024-02-14] MEDS: Nystatin Powder 15gm Bottle 1 APPLIC TOPICAL ×2 (05:02→22:35)
--- NOTE | 2024-02-14 06:08 | NURSING ---
Spoke w/ network operations specialist on the unit and she questions if blood should be drawn this am for Cortrosyn test. Informed her medication for testing was dc'ed d/t pt not having IV access and lab's machine was not wokring per progress note for test to be completed over the weekend. Solar Sales Representative And Assessor notes the machine to run the test is working and this type of test is not completed over the weekends. Will report to oncoming nurse.
[2024-02-14] MEDS: Ipratropium/Albuterol Sulfate 3 ML AMPUL.NEB INHALATION ×3 (07:18→21:15)
[2024-02-14] MEDS: Calcium (Elemental) 500 MG Tablet 1000 MG PO (07:52)
[2024-02-14] MEDS: predniSONE 5 MG Tablet PO (07:52)
[2024-02-14] MEDS: Psyllium 1 PACKET PO (07:52)
[2024-02-14] MEDS: Metoprolol(XL)Succ 25 MG Tablet PO (07:53)
[2024-02-14] MEDS: TICAGRELOR 90 MG TABLET PO ×2 (07:53→22:29)
[2024-02-14] MEDS: Aspirin 81 MG TAB.CHEW PO (07:53)
[2024-02-14] MEDS: SACUBITRIL/VALSARTAN 49-51 MG TABLET 1 EACH PO ×2 (07:53→22:29)
[2024-02-14] MEDS: Ferrous Sulfate 325 MG Tablet PO (07:53)
[2024-02-14] MEDS: Cyanocobalamin 500 MCG Tablet 1000 MCG PO (07:54)
[2024-02-14] MEDS: Enoxaparin 40 MG/0.4 ML Syringe SC (07:55)
[2024-02-14] MEDS: Spironolactone 25 MG Tablet 12.5 MG PO (07:56)
--- NOTE | 2024-02-14 08:24 | PCM.PROGNOTE ---
Subjective Subjective Pt was seen on TEAM rounds today. Her dtr Heriberto participated by phone. Afebrile VSS -she was started on prednisone 5 mg daily yesterday for suspected adrenal insufficiency due to frequent steroids for COPD exacerbation. Blood pressure is better and is currently 127/83. The past 3 doses of Entresto have been given. Maintaining appropriate oxygen saturation on RA Oral intake - FOOD good FLUIDS good Discussed with nursing - no problems that need addressed. Sleeping better with an addition of anxiety lytics to her drug regimen. Tolerating the Buspar with no adverse SE's. Reviewed the THERAPY notes Medication list reviewed. Cris is c/o a cough that started last night. Non-productive. Denies CP. She is c/o increased SOB. Did not sleep well last night. She is also c/o her urine sometimes smelling and some suprapubic pressure. No CP, palpitations, N/V/Abd pain. Objective Data Objective Data Vital Signs: Vital Signs Temp Pulse Resp BP Pulse Ox O2 Del Method O2 Flow Rate 98.0 F 92 18 127/83 H 98 Nasal Cannula 2 02/14/24 05:19 02/14/24 07:53 02/14/24 07:18 02/14/24 05:19 02/14/24 07:18 02/14/24 07:18 02/14/24 07:18 FiO2 2 02/11/24 20:30 Oxygen Flow Rate (L/min) 2 Oxygen Delivery Method Nasal Cannula Weight: 145 lb 15.136 oz Body Mass Index (BMI) 25.8 Intake & Output: Intake and Output for Last 24 Hours 02/12/24 02/13/24 02/14/24 23:59 23:59 23:59 Intake Total 1260 / 1260 2042 / 2042 200 / 200 Output Total 2150 / 2150 2275 / 2275 900 / 900 Balance -890 / -890 -233 / -233 -700 / -700 Lab / Micro Data 02/10/24 05:15 02/10/24 05:15 Micro: Microbiology 02/10/24 09:49 Stool Stool Occult Blood (KAREL) - Final Physical Exam Const alert Constitutional Narrative: She was pursed lip breathing when I walked into the room, but no conversational dyspnea. Nurses tell me that she has been coughing this AM. General Appearance: cooperative Resp Resp Narrative: RR was in the low 20's last night. Pulse ox is 92-94% on 2 LPM NC. She did not cough when I had her taking deep breaths. She has diminished BS's throughout. No crackles today. She has diffuse exp wheezing today. No fevers. No conversational dyspnea but the minute she stop[s talking she starts pursed lip breathing. A lot of the wheezing is being transmitted from the upper airway......coughing did not help to clear the secretions. She got progressively more anxious/agitated when the TEAM entered her room and her dtr got on the phone. Cardio regular rate, regular rhythm and no gallops GI normal to inspection, nondistended, normoactive bowel sounds, soft to palpation and non-tender GI Narrative: Moving bowels regularly Extremity General Extremity: Negative for edema Assessment & Plan Assessment/Plan (1) Adrenal insufficiency due to corticosteroid withdrawal: PLAN: BP improved significantly with addition of Prednisone 5 mg daily to the drug regimen. (2) Chronic obstructive pulmonary disease with (acute) exacerbation: PLAN: Gold 3. Emphysematous changes on CT scan of the chest. Currently on Duoneb Q6H and Albuterol Q 2 PRN and budesonide BID. (3) Debility: (4) TIA (transient ischemic attack): (5) COPD (chronic obstructive pulmonary disease): QUALIFIERS: COPD type: emphysema Emphysema type: unspecified Qualified Code(s): J43.9 - Emphysema, unspecified (6) Chronic heart failure with preserved ejection fraction (HFpEF): PLAN: Recent EF in January 2024 was 78% with impaired relaxation of the LV/diastolic dysfunction. (7) Coronary artery disease: QUALIFIERS: Associated angina: unspecified whether angina present Coronary Disease-Associated Artery/Lesion type: unspecified vessel or lesion type [place] vs. transplanted heart: [place] heart Qualified Code(s): I25.10 - Atherosclerotic heart disease of [place] coronary artery without angina pectoris (8) Anxiety disorder due to general medical condition with panic attack: PLAN: When the Klonopin was discontinued the insomnia recurred. She is tolerating Buspar 5 mg TID with no adverse reactions. (9) Chronic insomnia: PLAN: Plan 1. Continue therapy 2. PA and lateral CXR now 3. straight cath for UA 4. Increase the Prednisone to 40 mg daily starting today 5. Restart Klonopin at HS - may be needs to have Klonopin BID, rather than Buspar. She seems to respond well to the Klonopin and with gold class 3 COPD, pulmonary HTN, diastolic CHF with preserved EF I suspect she always has air hunger. 6. Increase the Buspar. 7. I reviewed records obtained from PCP. Charges/Coding Visit Charges Inpatient E&M: 76452 Subs Hosp L2
[2024-02-14] MEDS: Cholecalciferol (VIT D3) 25 MCG TABLET (1,000 UNITS) PO (08:49)
--- NOTE | 2024-02-14 10:50 | RAD_ITS ---
INDICATION: wheezing/SOB EXAMINATION/TECHNIQUE: X-RAY - XR Chest 2 Views COMPARISON: No relevant prior comparison study available FINDINGS: LINES/DEVICES: None. LUNGS: Hyperinflated lungs with COPD changes. Mild stranding/scarring in the lower lungs. No focal consolidation. Small right middle lobe nodule likely due to granuloma. No evidence of pleural effusions. MEDIASTINUM AND CARDIOVASCULAR STRUCTURES: Cardiac silhouette not enlarged. Central airways and mediastinal contour are unremarkable. BONES AND SOFT TISSUES: No demonstrated acute osseous changes. RAD/Chest PA and Lateral IMPRESSION: No radiographic evidence of acute cardiopulmonary disease. Electronically Signed: Jeremy Esquivel MD at 12:30 EDT ,
[2024-02-14] MEDS: predniSONE 20 MG Tablet 40 MG PO (11:20)
[2024-02-14 12:04] LABS: Mucous, Urine 0 SEEN /hpf (<or=2+); Red Blood Cells-Urine 0 SEEN /hpf (0-5); Squamous Epithelial Cells - UA 0 SEEN /hpf (5-10)
[2024-02-14 12:09] LABS: Color, Urine Yellow (Yellow); Glucose, Dipstick Normal (Normal); Ketone-Dipstick Negative (Negative); Leukocyte Esterase-Dipstick 500 /ul (Negative); Nitrite-Dipstick Positive (Negative); Occult Blood-Urine Negative /ul (Negative); Protein-Dipstick Negative (Negative); Urine Bilirubin Dipstick Negative (Negative); Urine Clarity Clear (Clear); Urine Urobilinogen Normal (Normal); Urine pH 6.5 (5.0 - 8.0)
[2024-02-14 12:17] LABS: Bacteria 1+ /hpf (None Seen); White Blood Cells 5-10 SEEN /hpf (0-5)
--- NOTE | 2024-02-14 13:02 | CASEMGMT ---
Social Work IDT met with patient and conference call with dtr for Team meeting. Discussed patient's progress in PT/OT/ST/SN. Educated to [facility] insurance with NRD 02/14 and continued stay is not guaranteed with each review. Pt's goal is to return home with dtr. Dtr does work two jobs and unable to assist daily. Pt has several chronic conditions and Dr agreed to a palliative care referral. is also recommending pt get established with routine PCP and specialist to have success at DC. SW to provide pt with list of providers that are in Network. SW to assist with DC planning. Will ReTeam weekly. JOSH sent secure email referral to [facility]. LILIAM TanW
[2024-02-14] MEDS: ALPRAZolam 0.25 MG Tablet PO (13:20)
[2024-02-14] MEDS: Nitrofurantoin Macrocrystals 100 MG Capsule PO (15:46)
[2024-02-14] MEDS: clonazePAM 0.5 MG Tablet PO (22:24)
[2024-02-14] MEDS: Atorvastatin Calcium 40 MG Tablet PO (22:29)
[2024-02-14] MEDS: guaiFENesin 600 MG Tablet PO (22:29)
[2024-02-14] MEDS: Sodium Chloride 0.65% 1 SPRAY SPRAY.BTL 2 SPRAY NASAL (22:32)
[2024-02-15] VITALS (8 sets, daily range): BP systolic 105–115; BP diastolic 57–61; PULSE 72–100; RESP 18–24; TEMP 36.4–36.7; O2SAT 98–100; BMI 25.5
[2024-02-15] MEDS: Albuterol 2.5 MG/3 ML VIAL.NEB. INHALATION (03:20)
[2024-02-15] MEDS: Nystatin Powder 15gm Bottle 1 APPLIC TOPICAL ×2 (05:32→21:59)
[2024-02-15] MEDS: busPIRone 5 MG Tablet PO (05:32)
[2024-02-15] MEDS: Ipratropium/Albuterol Sulfate 3 ML AMPUL.NEB INHALATION ×3 (06:53→19:44)
[2024-02-15] MEDS: Enoxaparin 40 MG/0.4 ML Syringe SC (08:36)
[2024-02-15] MEDS: Aspirin 81 MG TAB.CHEW PO (08:36)
[2024-02-15] MEDS: Nitrofurantoin Macrocrystals 100 MG Capsule PO ×2 (08:36→16:31)
[2024-02-15] MEDS: Cholecalciferol (VIT D3) 25 MCG TABLET (1,000 UNITS) PO (08:36)
[2024-02-15] MEDS: Metoprolol(XL)Succ 25 MG Tablet PO (08:36)
[2024-02-15] MEDS: Ferrous Sulfate 325 MG Tablet PO (08:37)
[2024-02-15] MEDS: Psyllium 1 PACKET PO (08:37)
[2024-02-15] MEDS: predniSONE 20 MG Tablet 40 MG PO (08:37)
[2024-02-15] MEDS: SACUBITRIL/VALSARTAN 49-51 MG TABLET 1 EACH PO ×2 (08:37→21:59)
[2024-02-15] MEDS: guaiFENesin 600 MG Tablet PO ×2 (08:37→21:59)
[2024-02-15] MEDS: Calcium (Elemental) 500 MG Tablet 1000 MG PO (08:37)
[2024-02-15] MEDS: Cyanocobalamin 500 MCG Tablet 1000 MCG PO (08:40)
[2024-02-15] MEDS: Spironolactone 25 MG Tablet 12.5 MG PO (08:41)
[2024-02-15] MEDS: TICAGRELOR 90 MG TABLET PO ×2 (08:42→21:59)
--- NOTE | 2024-02-15 09:59 | PN_ITS ---
Subjective Subjective Day #2 Macrobid for simple cystitis. Afebrile VSS - Maintaining appropriate oxygen saturation on RA-98 to 100% on 2 L cannula. Pulse ox on 2 L nasal cannula following exertion with therapy yesterday was 91% with a heart rate of 110 bpm. After 5-minute rest break the patient pulse ox increased to 96% on 2 L and the heart rate was 98. Oral intake - FOOD good FLUIDS good Discussed with nursing - no problems that need addressed. Night nursing reports better air exchange with less shortness of breath. She requested an albuterol treatment at 3 AM. Reviewed the THERAPY notes Medication list reviewed. Urine culture is growing greater than 100,000 colonies of a gram-negative yamileth lactose professor of environmental studies. Cris denies lightheadedness, vertigo, nausea/vomiting/abdominal pain, diarrhea/constipation, dysuria and calf tenderness. She slept pretty well until approximately 3 AM last night and then woke up to go to the bathroom and then felt like she was smothering. She had a hard time getting back to sleep and she feels tired today however she has not slept well for the past 2 nights. She tells me she has a tickle in the back of her throat but she is not really coughing. She denies sore throat and also denies nasal congestion and rhinorrhea. Objective Data Objective Data Vital Signs: Vital Signs Temp Pulse Resp BP Pulse Ox O2 Del Method O2 Flow Rate 98.1 F 94 18 105/61 98 Nasal Cannula 2 02/15/24 06:20 02/15/24 08:36 02/15/24 06:53 02/15/24 06:20 02/15/24 06:53 02/15/24 06:53 02/15/24 08:00 FiO2 2 02/11/24 20:30 Oxygen Flow Rate (L/min) 2 Oxygen Delivery Method Nasal Cannula Weight: 144 lb 2.917 oz Body Mass Index (BMI) 25.5 Intake & Output: Intake and Output for Last 24 Hours 02/13/24 02/14/24 02/15/24 23:59 23:59 23:59 Intake Total 2041 / 204 1320 / 1320 500 / 500 Output Total 2275 / 2275 3150 / 3150 800 / 800 Balance -233 / -233 -1830 / -1830 -300 / -300 Lab / Micro Data 02/10/24 05:15 02/10/24 05:15 Labs: Laboratory Results - last 24 hr 02/14/24 11:55: Urine Color Yellow, Urine Clarity Clear, Urine pH 6.5, Ur Specific [place] 1.010, Urine Protein Negative, Urine Glucose (UA) Normal, Urine Ketones Negative, Urine Occult Blood Negative, Urine Nitrite Positive H, Urine Bilirubin Negative, Urine Urobilinogen Normal, Ur Leukocyte Esterase 500 H, Urine RBC 0 SEEN, Urine WBC 5-10 SEEN, Ur Squamous Epith Cells 0 SEEN, Urine Bacteria 1+, Urine Mucus 0 SEEN Micro: Microbiology 02/14/24 11:55 Urine Catheter - Catheter Urine Culture - Preliminary GNR lactose professor of environmental studies 02/10/24 09:49 Stool Stool Occult Blood (KAREL) - Final Radiography Diagnostic Testing: Radiology Impression Chest X-Ray 02/14/24 10:50 IMPRESSION: No radiographic evidence of acute cardiopulmonary disease. Electronically Signed: Jeremy Esquivel MD at 12:30 EDT , Physical Exam Const alert Constitutional Narrative: She is pursed lip breathing when I first saw her in therapy. When I am talking to her and distracting her the pursed lip breathing resolves. She has no conversational dyspnea. Resp Resp Narrative: Diminished throughout. Rare expiratory wheeze in the upper lung tiwari posteriorly. No wheeze in the lower lung tiwari over the anterior chest. No cough with deep breathing. No Rales. Cardio regular rate, regular rhythm and no gallops GI normal to inspection, nondistended, normoactive bowel sounds, soft to palpation and non-tender Extremity no calf tenderness General Extremity: Negative for edema Skin Rashes: no rashes Psych Psych Narrative: She is less angry today and attending better to what I am saying without interrupting. I think she is starting to realize that she is anxious and this is contributing to SOB. She also has made the connection that when she is hyperventilating she gets lightheaded. She was tearful yesterday and is frustrated because she feels that no one is listening to her. She is getting different information from different doctors and despite seeking help with smothering she feels she is no better. We have been talking about the severity of the COPD and how this is impacting her life. She is not dealing with the restrictions in her ability to do things due to the severe COPD. Would benefit from counselling to learn how to deal with her chronic illnesses. I also feel that she is depressed and this is related to her inability to do the things she has always done in the past but, is unable to do now due to severe COPD. Assessment & Plan Assessment/Plan (1) Adrenal insufficiency due to corticosteroid withdrawal: PLAN: BP improved significantly with addition of Prednisone 5 mg daily to the drug regimen. (2) Chronic obstructive pulmonary disease with (acute) exacerbation: PLAN: Gold 3. Emphysematous changes on CT scan of the chest. Currently on Duoneb Q6H and Albuterol Q 2 PRN and budesonide BID. (3) Debility: (4) TIA (transient ischemic attack): (5) COPD (chronic obstructive pulmonary disease): QUALIFIERS: COPD type: emphysema Emphysema type: unspecified Q ualified Code(s): J43.9 - Emphysema, unspecified (6) Chronic heart failure with preserved ejection fraction (HFpEF): PLAN: Recent EF in January 2024 was 78% with impaired relaxation of the LV/diastolic dysfunction. (7) Coronary artery disease: QUALIFIERS: Coronary Disease-Associated Artery/Lesion type: u nspecified vessel or lesion type [place] vs. transplanted heart: [place] heart A ssociated angina: unspecified whether angina present Qualified Code(s): I25.10 - Atherosclerotic heart disease of [place] coronary artery without angina pectoris (8) Anxiety disorder due to general medical condition with panic attack: PLAN: When the Klonopin was discontinued the insomnia recurred. She is tolerating Buspar 5 mg TID with no adverse reactions. (9) Chronic insomnia: (10) Cystitis: PLAN: Plan 1. Continue therapy 2. Discontinue BuSpar and increase Klonopin to 0.5 mg p.o. every 12 hours. Would like to start an SSRI at some point because I feel she has mixed anxiety/depression/panic attacks. Treating the panic attacks takes priority for now. 3. Continue the increased dose of Prednisone.......plan on tapering over 10 days to 5 mg daily. Someone needs to pay attention post DC to how often she is actually taking high dose steroids........She had adrenal suppression which was causing hypotension while on rehab. 4. I think she would benefit from psychotherapy post DC. 5. Increase the O2 to 3 LPM with exertion. 6. Continue Macrobid and await the results of the urine culture. Charges/Coding Visit Charges Inpatient E&M: 39196 Subs Hosp L1
--- NOTE | 2024-02-15 16:18 | CASEMGMT ---
Social Work Received secure email from [facility], Kimberly BURKS, from phone call with pt on services: Pt reports she has homehealth in the past and was not too impressed with them coming to house. [NURSING UNIT CLERK] Tried to explain difference between palliative home visits vs home health skilled visits. Patient is considering having palliative but wants to further discuss with dtr. [NURSING UNIT CLERK] informed patient palliative would reach out once she is home or has a discharge date and get her scheduled for home palliative visit. SW to follow up with pt closer to [place] on palliative services and notify [facility]. Meli Reyna, OUTBOUND SALES ADVISOR GUM SCORING MACHINE OPERATOR
[2024-02-15] MEDS: clonazePAM 0.5 MG Tablet PO (17:03)
[2024-02-15] MEDS: Atorvastatin Calcium 40 MG Tablet PO (21:59)
[2024-02-15] MEDS: Sodium Chloride 0.65% 1 SPRAY SPRAY.BTL 2 SPRAY NASAL (21:59)
[2024-02-16] VITALS (11 sets, daily range): BP systolic 103–132; BP diastolic 38–69; PULSE 99–119; RESP 16–25; TEMP 36.6–37; O2SAT 97–99; BMI 25.4
[2024-02-16] MEDS: Ipratropium/Albuterol Sulfate 3 ML AMPUL.NEB INHALATION ×3 (02:10→18:44)
[2024-02-16] MEDS: clonazePAM 0.5 MG Tablet PO ×2 (06:32→16:56)
[2024-02-16] MEDS: Enoxaparin 40 MG/0.4 ML Syringe SC (06:32)
[2024-02-16] MEDS: Nystatin Powder 15gm Bottle 1 APPLIC TOPICAL ×2 (06:33→21:19)
[2024-02-16] MEDS: Metoprolol(XL)Succ 25 MG Tablet PO (07:55)
[2024-02-16] MEDS: Cyanocobalamin 500 MCG Tablet 1000 MCG PO (07:56)
[2024-02-16] MEDS: Calcium (Elemental) 500 MG Tablet 1000 MG PO (07:56)
[2024-02-16] MEDS: Nitrofurantoin Macrocrystals 100 MG Capsule PO (07:56)
[2024-02-16] MEDS: Spironolactone 25 MG Tablet 12.5 MG PO (07:56)
[2024-02-16] MEDS: Psyllium 1 PACKET PO (07:56)
[2024-02-16] MEDS: Ferrous Sulfate 325 MG Tablet PO (07:57)
[2024-02-16] MEDS: predniSONE 20 MG Tablet 40 MG PO (07:57)
[2024-02-16] MEDS: Cholecalciferol (VIT D3) 25 MCG TABLET (1,000 UNITS) PO (07:57)
[2024-02-16] MEDS: TICAGRELOR 90 MG TABLET PO ×2 (07:57→21:17)
[2024-02-16] MEDS: SACUBITRIL/VALSARTAN 49-51 MG TABLET 1 EACH PO (07:57)
[2024-02-16] MEDS: Aspirin 81 MG TAB.CHEW PO (07:57)
[2024-02-16] MEDS: guaiFENesin 600 MG Tablet PO ×2 (07:57→21:18)
--- NOTE | 2024-02-16 10:34 | PN.REHAB_ITS ---
Subjective Subjective Day #3 Macrobid Afebrile VSS -blood pressure over the past 24 hours has ranged from 105/61 to 132/69. Respiratory rate is 23-25 currently. She is pursed lip breathing and she today she has conversational dyspnea. Maintaining appropriate oxygen saturation on RA Oral intake - FOOD good FLUIDS oral intake yesterday was 3290 cc with 2700 mL for a balance of 590 cc. Weight today is 143 pounds and 15 ounces down from 144 pounds and 3 ounces yesterday. Discussed with nursing - no problems that need addressed Reviewed the THERAPY notes Medication list reviewed. Urine culture is growing an ESBL Klebsiella pneumoniae which is only intermediately sensitive to nitrofurantoin. It is resistant to Augmentin. It is sensitive to fluoroquinolones. I reviewed records from Dr. Cabrera. Patient had a non-STEMI in July 2023 and echocardiogram at that time revealed a 30% EF with moderate mitral regurgitation. Most recent echo showed a 78% ejection fraction and she is on Entresto. Cris tells me that she had a terrible night. She had increased shortness of breath when laying supine last night and had to have the head of the bed elevated to improve breathing. She took an albuterol aerosol at 3:20 AM. She states her chest feels tight. Denies dysuria. Objective Data Objective Data Vital Signs: Vital Signs Temp Pulse Resp BP Pulse Ox O2 Del Method O2 Flow Rate 98.6 F 100 23 H 132/69 H 99 Nasal Cannula 2 02/16/24 06:00 02/16/24 07:55 02/16/24 07:15 02/16/24 07:55 02/16/24 07:15 02/16/24 10:00 02/16/24 10:00 FiO2 2 02/11/24 20:30 Oxygen Flow Rate (L/min) 2 Oxygen Delivery Method Nasal Cannula Weight: 143 lb 15.39 oz Body Mass Index (BMI) 25.4 Intake & Output: Intake and Output for Last 24 Hours 02/14/24 02/15/24 02/16/24 23:59 23:59 23:59 Intake Total 1320 / 1320 3000 / 3000 790 / 790 Output Total 3150 / 3150 2400 / 2400 1100 / 1100 Balance -1830 / -1830 600 / 600 -310 / -310 Lab / Micro Data 02/10/24 05:15 02/17/24 05:06 Micro: Microbiology 02/14/24 11:55 Urine Catheter - Catheter Urine Culture - Preliminary ESBL Klebsiella pneumoniae pne 02/10/24 09:49 Stool Stool Occult Blood (KAREL) - Final Indicators for Scoring Admitted with or Primary Diagnosis of CVA/Stroke: Yes Hx of CVA/Stroke: Yes Modified Soo Score MRS Score at time of Evaluation: 4-Moderate/severe disability Physical Exam Const alert Constitutional Narrative: she appears to be in some respiratory distress today. General Appearance: cooperative Resp Resp Narrative: I saw her immediately after an aerosol. She has pursed lip breathing and she is tachypneic with conversational dyspnea today. the air exchange is better today than yesterday but has diffuse wheezing in the lower lobes posteriorly and anteriorly. Few crackles, coarse, in the LLL posteriorly. No coughing with deep breath. Cardio Cardio Narrative: heart sounds are very distant. Pulse is regular with increased resting HR. I do not appreciate a gallop however the heart sounds are very distant and she is wheezing anteriorly which is contributing to difficulty hearing. NO ANKLE EDEMA GI normal to inspection, nondistended, normoactive bowel sounds, soft to palpation and non-tender Extremity no calf tenderness General Extremity: Negative for edema Skin General Skin Exam: no breakdown Rashes: no rashes Assessment & Plan Assessment/Plan (1) HFrEF (heart failure with reduced ejection fraction): (2) Debility: (3) TIA (transient ischemic attack): (4) Adrenal insufficiency due to corticosteroid withdrawal: (5) Cystitis: (6) Anxiety disorder due to general medical condition with panic attack: (7) Chronic obstructive pulmonary disease with (acute) exacerbation: (8) Chronic insomnia: (9) Coronary artery disease: QUALIFIERS: Coronary Disease-Associated Artery/Lesion type: u nspecified vessel or lesion type [place] vs. transplanted heart: [place] heart A ssociated angina: unspecified whether angina present Qualified Code(s): I25.10 - Atherosclerotic heart disease of [place] coronary artery without angina pectoris (10) Mixed stress and urge urinary incontinence: PLAN: Plan 1. Continue therapy 2. Discontinue Macrobid and start Cipro 500 mg now and then 250 mg twice daily for a total of 5 days 3. Re-institute fluid restriction. 4. BMP, MAG and BNP now 5. EKG now 6. Insert a Moise catheter for accurate I&O in a patient with suspected acute on chronic congestive heart failure. She is too SOB now to be getting up to the BR frequently and she is going to be getting Lasix. Continue daily weights. 7. Reinstitute fluid restriction to 1500 cc daily. I explained to the patient why we are reinstituting fluid restriction. 8. Check a resp panel, RSV and Flu 9. Continue PRN aerosols. Charges/Coding Visit Charges Inpatient E&M: 99011 Subs Hosp L2
[2024-02-16] MEDS: Ciprofloxacin 500 MG Tablet PO (11:47)
[2024-02-16] MEDS: Furosemide 20 MG/2 ML VIAL IV (14:25)
[2024-02-16] MEDS: 0.9% Saline Lock 10 ML Syringe IV (14:25)
[2024-02-16 15:43] LABS: Anion Gap 6 (5-15); BUN 30 mg/dL (7-18); BUN/Creat Ratio 24.6 RATIO (10-20); Calcium,Total 9.2 mg/dL (8.5-10.1); Chloride 103 mmol/L (98-107); Creatinine, Serum 1.22 mg/dL (0.55-1.02); EST Glomerular Filtration Rate 46 mL/min (>60); Est Glom Filt Rate - Afr Amer 56 mL/min (>60); Estimated Creatinine Clearance 39.55 ml/min; Glucose 325 mg/dL (74-106); Magnesium 2.1 mg/dL (1.6-2.6); Potassium 4.9 mmol/L (3.5-5.1); Sodium Level 133 mmol/L (136-145)
[2024-02-16 17:28] LABS: Bedside Glucose 339 mg/dL (74-106)
[2024-02-16] MEDS: Insulin Lispro 100 UNIT/ML INSULN.PEN SC ×2 (18:48→21:29)
[2024-02-16] MEDS: Ciprofloxacin 250 MG Tablet PO (21:17)
[2024-02-16] MEDS: Atorvastatin Calcium 40 MG Tablet PO (21:17)
[2024-02-16] MEDS: Ketoconazole Cream 1 APPLIC TOPICAL (21:18)
[2024-02-16] MEDS: Albuterol 2.5 MG/3 ML VIAL.NEB. INHALATION (21:20)
[2024-02-16 21:56] LABS: Bedside Glucose 232 mg/dL (74-106)
[2024-02-17] VITALS (7 sets, daily range): BP systolic 101–118; BP diastolic 58–68; PULSE 88–114; RESP 18–28; TEMP 36.3; O2SAT 98; BMI 26.0
[2024-02-17 01:54] LABS: BNP,B-Type NATRIURETIC PEPTIDE 34.8 pg/mL (0-100)
[2024-02-17] MEDS: Ipratropium/Albuterol Sulfate 3 ML AMPUL.NEB INHALATION ×4 (02:40→19:41)
[2024-02-17 06:40] LABS: Anion Gap 4 (5-15); BUN 42 mg/dL (7-18); BUN/Creat Ratio 39.6 RATIO (10-20); Calcium,Total 9.4 mg/dL (8.5-10.1); Chloride 106 mmol/L (98-107); Creatinine, Serum 1.06 mg/dL (0.55-1.02); EST Glomerular Filtration Rate 55 mL/min (>60); Est Glom Filt Rate - Afr Amer 66 mL/min (>60); Estimated Creatinine Clearance 45.52 ml/min; Glucose 119 mg/dL (74-106); Potassium 4.3 mmol/L (3.5-5.1); Sodium Level 138 mmol/L (136-145)
[2024-02-17] MEDS: clonazePAM 0.5 MG Tablet PO (07:14)
[2024-02-17] MEDS: Enoxaparin 40 MG/0.4 ML Syringe SC (07:14)
[2024-02-17] MEDS: Nystatin Powder 15gm Bottle 1 APPLIC TOPICAL ×2 (07:14→21:16)
[2024-02-17 07:25] LABS: Bedside Glucose 106 mg/dL (74-106)
[2024-02-17 08:04] LABS: BNP,B-Type NATRIURETIC PEPTIDE 20.7 pg/mL (0-100)
[2024-02-17] MEDS: Ketoconazole Cream 1 APPLIC TOPICAL ×2 (09:09→21:13)
[2024-02-17] MEDS: Calcium (Elemental) 500 MG Tablet 1000 MG PO (09:10)
[2024-02-17] MEDS: Cholecalciferol (VIT D3) 25 MCG TABLET (1,000 UNITS) PO (09:10)
[2024-02-17] MEDS: Cyanocobalamin 500 MCG Tablet 1000 MCG PO (09:10)
[2024-02-17] MEDS: Aspirin 81 MG TAB.CHEW PO (09:10)
[2024-02-17] MEDS: Ciprofloxacin 250 MG Tablet PO ×2 (09:11→21:13)
[2024-02-17] MEDS: Ferrous Sulfate 325 MG Tablet PO (09:11)
[2024-02-17] MEDS: SACUBITRIL/VALSARTAN 49-51 MG TABLET 1 EACH PO (09:11)
[2024-02-17] MEDS: predniSONE 10 MG Tablet 30 MG PO (09:11)
[2024-02-17] MEDS: Psyllium 1 PACKET PO (09:11)
[2024-02-17] MEDS: TICAGRELOR 90 MG TABLET PO ×2 (09:11→21:13)
[2024-02-17] MEDS: Spironolactone 25 MG Tablet 12.5 MG PO (09:11)
[2024-02-17] MEDS: guaiFENesin 600 MG Tablet PO ×2 (09:11→21:13)
[2024-02-17] MEDS: Metoprolol(XL)Succ 25 MG Tablet PO (09:12)
--- NOTE | 2024-02-17 10:01 | PN_ITS ---
Subjective Subjective Day #2 of 5 Levaquin for simple cystitis Day #1/3 of Prednisone 30 mg daily Afebrile VSS -heart rate for the past 24 hours has ranged from 95-1 04. Blood pressure is within goal. No hypotension. Tolerating Entresto now. Maintaining appropriate oxygen saturation on RA Oral intake - FOOD good FLUIDS fluid balance yesterday was -870. Weight today is 147 pounds and 0.8 ounces which is up from 143 pounds and 15 ounces yesterday despite negative fluid balance? 98 to 99% on the 2 L nasal cannula The blood sugar record was reviewed. The blood sugar at supper yesterday was 339 and it was 232 at bedtime. She is on a medium sliding scale. Fasting today is 106. Discussed with nursing - no problems that need addressed Reviewed the THERAPY notes Medication list reviewed. BUN today is 42 with a creatinine of 1.06 which is down from 1.22 yesterday. Electrolytes are unremarkable. BNP today is 20.7. BS's are elevated due to the high-dose steroids. Respiratory panel, influenza AMB and RSV AMB are negative. Multiple complaints again today. SOB, doesn't like the Moise, RT is not giving her a cup to spit in with her aerosols, not sleeping well, wants the fluid restriction discontinued, she has sores in the R corner of the mouth, her mouth is dry, she has a tickle in the back throat, she has urine stress incontinence and urge incontinence chronically, etc. Can not seem to remember from day to day the education she has been provided with. She perseverates. Would not let the lab draw her blood when they came up yesterday and they had to come up a second time. EKG shows sinus tachycardia with a rate of 108 bpm with no significant ST depression or any ST elevation. Did not have an aerosol in the middle of the night last night. She is not c/o smothering tonight. Not complaining of SP today or cough. No lightheadedness . Objective Data Objective Data Vital Signs: Vital Signs Temp Pulse Resp BP Pulse Ox O2 Del Method O2 Flow Rate 97.8 F 104 H 18 114/68 98 Nasal Cannula 2 02/16/24 17:46 02/17/24 09:12 02/17/24 07:27 02/17/24 09:12 02/17/24 07:27 02/17/24 07:27 02/17/24 08:00 FiO2 2 02/11/24 20:30 Oxygen Flow Rate (L/min) 2 Oxygen Delivery Method Nasal Cannula Weight: 147 lb 0.773 oz Body Mass Index (BMI) 26.0 Intake & Output: Intake and Output for Last 24 Hours 02/15/24 02/16/24 02/17/24 23:59 23:59 23:59 Intake Total 3000 / 3000 1430 / 1520 450 / 450 Output Total 2400 / 2400 2300 / 2600 450 / 450 Balance 600 / 600 -870 / -1080 0 / 0 Lab / Micro Data 02/10/24 05:15 02/17/24 05:06 Labs: Laboratory Results - last 24 hr 02/16/24 14:40: Sodium 133 L, Potassium 4.9, Chloride 103, Carbon Dioxide 24.0, Anion Gap 6, BUN 30 H, Creatinine 1.22 H, Estim Creat Clear Calc 39.55, Est GFR (MDRD) Af Amer 56 L, Est GFR (MDRD) Non-Af 46 L, BUN/Creatinine Ratio 24.6 H, G lucose 325 H, Calcium 9.2, Magnesium 2.1, B-Natriuretic Peptide 34.8 02/16/24 16:59: POC Glucose 339 H 02/16/24 21:29: POC Glucose 232 H 02/17/24 05:06: Sodium 138, Potassium 4.3, Chloride 106, Carbon Dioxide 28.0, A nion Gap 4 L, BUN 42 H, Creatinine 1.06 H, Estim Creat Clear Calc 45.52, Est GFR (MDRD) Af Amer 66, Est GFR (MDRD) Non-Af 55 L, BUN/Creatinine Ratio 39.6 H, G lucose 119 H, Calcium 9.4, B-Natriuretic Peptide 20.7 02/17/24 06:24: POC Glucose 106 Micro: Microbiology 02/14/24 11:55 Urine Catheter - Catheter Urine Culture - Final ESBL Klebsiella pneumoniae pne 02/16/24 13:00 Mucosa - Nose Respiratory Panel (PCR) - Final 02/10/24 09:49 Stool Stool Occult Blood (KAREL) - Final Physical Exam Const alert Constitutional Narrative: doing some pursed lip breathing......much less today. No conversational dyspnea today and she is not tachypneic like yesterday. General Appearance: cooperative HEENT normocephalic Resp Resp Narrative: I saw her immediately after an aerosol. She has pursed lip breathing and she is tachypneic with conversational dyspnea today. the air exchange is better today than yesterday but has diffuse wheezing in the lower lobes posteriorly and anteriorly. Few crackles, coarse, in the LLL posteriorly. No coughing with deep breath. Effort and Inspection: Negative for tachypneic, respiratory distress, labored or uses accessory muscles Auscultation: diminished lung sounds Cardio regular rate, regular rhythm and no gallops Cardio Narrative: heart sounds are very distant. Pulse is regular with increased resting HR. I do not appreciate a gallop however the heart sounds are very distant and she is wheezing anteriorly which is contributing to difficulty hearing. NO ANKLE EDEMA GI normal to inspection, nondistended, normoactive bowel sounds, soft to palpation and non-tender GI Narrative: Moving bowels regularly Extremity no calf tenderness General Extremity: Negative for edema Skin General Skin Exam: no breakdown Rashes: no rashes Psych thought process normal and cooperative Psych Narrative: She is less angry today and attending better to what I am saying without interrupting. I think she is starting to realize that she is anxious and this is contributing to SOB. She also has made the connection that when she is hyperventilating she gets lightheaded. She was tearful yesterday and is frustrated because she feels that no one is listening to her. She is getting different information from different doctors and despite seeking help with smothering she feels she is no better. We have been talking about the severity of the COPD and how this is impacting her life. She is not dealing with the restrictions in her ability to do things due to the severe COPD. Would benefit from counselling to learn how to deal with her chronic illnesses. I also feel that she is depressed and this is related to her inability to do the things she has always done in the past but, is unable to do now due to severe COPD. Appearance: appropriate Mood & Affect: anxious Assessment & Plan Assessment/Plan (1) HFrEF (heart failure with reduced ejection fraction): PLAN: better today after diuresis yesterday. (2) Debility: (3) TIA (transient ischemic attack): (4) Adrenal insufficiency due to corticosteroid withdrawal: (5) Cystitis: (6) Anxiety disorder due to general medical condition with panic attack: (7) Chronic obstructive pulmonary disease with (acute) exacerbation: (8) Chronic insomnia: (9) Coronary artery disease: QUALIFIERS: Coronary Disease-Associated Artery/Lesion type: u nspecified vessel or lesion type [place] vs. transplanted heart: [place] heart A ssociated angina: unspecified whether angina present Qualified Code(s): I25.10 - Atherosclerotic heart disease of [place] coronary artery without angina pectoris (10) Mixed stress and urge urinary incontinence: PLAN: Plan 1. Continue therapy 2. Start Premarin vaginal cream 1 applicator at at bedtime nightly for 1 week and then decrease to twice weekly 3. Physical therapist will instruct in Kegel's exercises -this was recommended to her in the past but she has not been doing it. 4. Increase the Klonopin to 0.75 mg nightly for chronic insomnia/severe anxiety with panic attacks. 5. Prednisone 30 mg daily for 3 to 4 days and then decrease to 20 mg and then to 10 mg for a couple days. Plan on continuing Prednisone 5 mg daily at [place] since she had adrenal insufficiency while on rehab.....on frequent high dose steroids prescribed by multiple doctors. 6. Reinforced with her once again that she has several chronic diseases and when she is discharged she will need to continue exercising to maintain her muscle strength and maintain the increased exercise tolerance she has gained while on rehab. Discussed psychotherapy to help her deal with the reality of her disabilities and the fact that her breathing is never going to return to what it was in the past. 7. Once again discussed with her why she needs to stay on fluid restriction. Poor attention to what I am saying to her.......changing the subject and not recalling from 1 day to the next what has been said to her. 8. Will discontinue the Moise in the AM 9. Has an appt with pulmonology on 04/24/24. Has an appt to follow up with PCP/RESOURCE DIRECTOR in May but, will need to follow up sooner. 10. Recommended a medic alert program for her since she is home alone much of the time......SW will give a list of resources. 11. Her dtr works and she is alone a lot of the day........I stressed the benefits of palliative care because then she will have someone to call when she feels like her symptoms are out of control. Charges/Coding Visit Charges Inpatient E&M: 59771 Subs Hosp L2
[2024-02-17 11:29] LABS: Bedside Glucose 106 mg/dL (74-106)
[2024-02-17 16:47] LABS: Bedside Glucose 313 mg/dL (74-106)
[2024-02-17] MEDS: Insulin Lispro 100 UNIT/ML INSULN.PEN SC ×2 (17:00→21:14)
[2024-02-17] MEDS: clonazePAM 0.5 MG Tablet 0.75 MG PO (21:12)
[2024-02-17] MEDS: Atorvastatin Calcium 40 MG Tablet PO (21:16)
[2024-02-17] MEDS: Estrogens,Conj. 1 Tube VAGINAL (21:17)
[2024-02-17 21:35] LABS: Bedside Glucose 243 mg/dL (74-106)
[2024-02-17] MEDS: 0.9% Saline Lock 10 ML Syringe IV (22:18)
--- NOTE | 2024-02-17 22:21 | NURSING ---
2100 pt reports that her catheter is leaking and staff noted wetness to pts clothing and pad on the recliner, also stated that she feels like needs to urinate. staff noted that her catheter was out longer that it should be and the balloon was intact. staff did changed the turpin catheter out for a new one and pt tolerated fair, pt urethra is noted to be dark red in color. turpin was placed with out difficulty, and immediate return of clear yellow urine is noted. pt reports that she still feels like needs to urinate, staff checked tubing making sure there was no kinking. staff told pt the catheter was draining fine but is felt like it was leaking again to let us know, pt acknowledged
[2024-02-18] VITALS (12 sets, daily range): BP systolic 112–125; BP diastolic 52–65; PULSE 80–104; RESP 18–26; TEMP 35.9–36.8; O2SAT 97–98; BMI 25.9
[2024-02-18] MEDS: Albuterol 2.5 MG/3 ML VIAL.NEB. INHALATION ×2 (02:56→13:00)
--- NOTE | 2024-02-18 03:05 | NURSING ---
[facility]PS here and voiced concerned over respiratory rate and did ABGs waiting for results
[2024-02-18 03:17] LABS: Allen Test Positive; Base Excess 4 mmol/L (-2 to +2); Bicarbonate 29.2 mmol/L (22-26); Blood Gas Specimen Type ART; Mode Not entered; O2 Delivery Device Room Air; PO2 39 mmHG (75-100); SITE L Radial; SO2 70 % (95-99); Total Carbon Dioxide 31 mmol/L; pCO2 52.1 mmHg (35-45); pH 7.36 (7.35-7.45)
--- NOTE | 2024-02-18 03:22 | NURSING ---
return call from CPS with ABG results: bicarb 29.2, PH 7.39, CO2 52.1
--- NOTE | 2024-02-18 03:24 | CPS ---
[0313] Venous blood acquired while performing ABG on pt. PO2 results aren't critical due to VBG parameters. Pt.'s SpO2 has been running anywhere from 96-98% on 2L NC. RN aware.
[2024-02-18] MEDS: Nystatin Powder 15gm Bottle 1 APPLIC TOPICAL ×2 (05:55→21:29)
[2024-02-18] MEDS: Enoxaparin 40 MG/0.4 ML Syringe SC (05:56)
[2024-02-18] MEDS: clonazePAM 0.5 MG Tablet PO (05:56)
[2024-02-18 07:06] LABS: Bedside Glucose 98 mg/dL (74-106)
[2024-02-18] MEDS: Cyanocobalamin 500 MCG Tablet 1000 MCG PO (09:05)
[2024-02-18] MEDS: Metoprolol(XL)Succ 25 MG Tablet PO (09:05)
[2024-02-18] MEDS: guaiFENesin 600 MG Tablet PO ×2 (09:05→21:16)
[2024-02-18] MEDS: Psyllium 1 PACKET PO (09:05)
[2024-02-18] MEDS: predniSONE 10 MG Tablet 30 MG PO (09:06)
[2024-02-18] MEDS: SACUBITRIL/VALSARTAN 49-51 MG TABLET 1 EACH PO ×2 (09:06→21:20)
[2024-02-18] MEDS: Calcium (Elemental) 500 MG Tablet 1000 MG PO (09:06)
[2024-02-18] MEDS: TICAGRELOR 90 MG TABLET PO ×2 (09:06→21:16)
[2024-02-18] MEDS: Ciprofloxacin 250 MG Tablet PO ×2 (09:06→21:16)
[2024-02-18] MEDS: Spironolactone 25 MG Tablet 12.5 MG PO (09:06)
[2024-02-18] MEDS: Ferrous Sulfate 325 MG Tablet PO (09:06)
[2024-02-18] MEDS: Aspirin 81 MG TAB.CHEW PO (09:06)
[2024-02-18] MEDS: Cholecalciferol (VIT D3) 25 MCG TABLET (1,000 UNITS) PO (09:06)
[2024-02-18] MEDS: Ketoconazole Cream 1 APPLIC TOPICAL ×2 (09:12→21:28)
--- NOTE | 2024-02-18 10:39 | PN_ITS ---
Subjective Subjective Afebrile VSS - Maintaining appropriate oxygen saturation on RA Oral intake - FOOD very good FLUIDS good. 1400 yesterday The blood sugar record was reviewed. Fasting blood sugar is 98 this morning. It was 243 at at bedtime and 313 at supper yesterday. She remains on sliding scale insulin. Discussed with nursing - Wheezing increased last night and RR increased to 30. An ABG was obtained on RA? She is chronically on 2 - 3 LPM for past few years. pCO2 was 52.1 and the pO2 was 39 with a 70% EF. pH was 7.36. Respiratory rate is currently 20 and she is 97 does not deviate percent saturated on 2 L nasal cannula. Apparently she woke up very SOB and her oxygen was off her face. Reviewed the THERAPY notes Medication list reviewed. Pt tells me that in addition to Duonebs and albuterol aerosols at home she was on Breztri BID She is on very frequent high dose steroids for frequent exacerbations and They do not seem to be helping. she tells me that she woke up last night and her oxygen was on the floor. She did not have any Albuterol aerosols for breakthrough yesterday.....has not been asking for them. Denies CP at the present time. Rare cough. Feels as though she has something stuck in the back of her through and she can not cough it up or swallow it. Has been angry when she is awoken to get an aerosol and gives the RT a hard time. She also does not want to have an aerosol when she is eating......pt denies this. Objective Data Objective Data Vital Signs: Vital Signs Temp Pulse Resp BP Pulse Ox O2 Del Method O2 Flow Rate 98.2 F 104 H 20 H 125/65 H 97 Room Air 2 02/18/24 09:04 02/18/24 09:05 02/18/24 09:04 02/18/24 09:04 02/18/24 09:04 02/18/24 09:04 02/18/24 09:04 FiO2 2 02/11/24 20:30 Oxygen Flow Rate (L/min) 2 Oxygen Delivery Method Room Air Weight: 146 lb 9.718 oz Body Mass Index (BMI) 25.9 Intake & Output: Intake and Output for Last 24 Hours 02/16/24 02/17/24 02/18/24 23:59 23:59 23:59 Intake Total 1430 / 1520 1510 / 1510 340 / 340 Output Total 2300 / 2600 900 / 900 275 / 275 Balance -870 / -1080 610 / 610 65 / 65 Lab / Micro Data 02/19/24 05:44 02/19/24 05:44 Labs: Laboratory Results - last 24 hr 02/17/24 11:11: POC Glucose 106 02/17/24 16:22: POC Glucose 313 H 02/17/24 21:11: POC Glucose 243 H 02/18/24 06:47: POC Glucose 98 Micro: Microbiology 02/14/24 11:55 Urine Catheter - Catheter Urine Culture - Final ESBL Klebsiella pneumoniae pne 02/16/24 13:00 Mucosa - Nose Respiratory Panel (PCR) - Final 02/10/24 09:49 Stool Stool Occult Blood (KAREL) - Final ABG Data ABG results: ABG 02/18/24 03:13 Specimen Type ART Sample Site L Radial pH 7.36 Bicarbonate Actual 29.2 H Total CO2 31 Base Excess 4 H O2 Saturation 70 L O2 % 2.0 ABG pCO2 52.1 H ABG pO2 39 L* Bertram Test Positive O2 Delivery Device Room Air Vent Mode Not entered Crit Call To/Read Back Yes Blood Gas Notified Whom Venous stick Blood Gas Notified Time 03:15:45 Physical Exam Const alert and oriented x3 Constitutional Narrative: pursed lip breathing when she is not talking. No conversational dyspnea today Resp Resp Narrative: Diminished air exchange throughout. Scattered mild expiratory wheezing. Cardio regular rate, regular rhythm and no gallops GI normal to inspection, nondistended, normoactive bowel sounds, soft to palpation and non-tender Extremity no calf tenderness General Extremity: Negative for edema Assessment & Plan Assessment/Plan (1) HFrEF (heart failure with reduced ejection fraction): (2) Debility: (3) TIA (transient ischemic attack): (4) Adrenal insufficiency due to corticosteroid withdrawal: (5) Cystitis: (6) Anxiety disorder due to general medical condition with panic attack: (7) Chronic obstructive pulmonary disease with (acute) exacerbation: (8) Chronic insomnia: (9) Coronary artery disease: QUALIFIERS: Coronary Disease-Associated Artery/Lesion type: u nspecified vessel or lesion type [place] vs. transplanted heart: [place] heart A ssociated angina: unspecified whether angina present Qualified Code(s): I25.10 - Atherosclerotic heart disease of [place] coronary artery without angina pectoris (10) Mixed stress and urge urinary incontinence: PLAN: Plan 1. Continue therapy 2. Discontinue the Klonopin at HS but continue the AM dose of 0.5 mg......it does not make her sleepy and she is calmer and better able to do therapy. Start Sertraline for anxiety/depression. 3. Obtain records from her archival studies professor....last PFT's and last couple progress notes and a med list. 4. Dtr will bring in her Breztri inhaler and we will use this - 2 puffs Q 12H. After the Breztri is started will DC the Budesonide aerosols. 5. She has severe COPD which does not improve with high dose steroid. Aerosols work for her but, they are not being given every 6 hours - yesterday she had a duoneb at 2-3 in the AM and then got the last duoneb at about 8 PM.......she can not go all night without a Duoneb. D/W pharmacy and respiratory.....will schedule the Duonebs Q4 H ATC. 6. Decrease the Prednisone to 20 mg for 2-3 days and then decrease to 10 mg for 3-5 days and then decrease to 5 mg daily and continue indefinitely. She sees many different physicians (cardiology, pulmonology, ACCOUNTS RECEIVABLE REPRESENTATIVE, ER docs, pulmonary rehab, Heart failure clinic) meds are changed without consulting the specialist in the clinics and she is often placed on high dose steroids when she goes to the ED for acute exacerbations which is frequent. Stressed with Cris the need for STRICT compliance with aerosols at home and compliance with fluid restriction. Charges/Coding Visit Charges Inpatient E&M: [address] [facility] Hosp L1
[2024-02-18 11:23] LABS: Bedside Glucose 96 mg/dL (74-106)
[2024-02-18] MEDS: Ipratropium/Albuterol Sulfate 3 ML AMPUL.NEB INHALATION ×4 (13:00→23:20)
[2024-02-18] MEDS: Sertraline 50 MG Tablet PO (13:23)
[2024-02-18 16:50] LABS: Bedside Glucose 342 mg/dL (74-106)
[2024-02-18] MEDS: Insulin Lispro 100 UNIT/ML INSULN.PEN SC ×2 (17:18→21:22)
[2024-02-18] MEDS: Atorvastatin Calcium 40 MG Tablet PO (21:16)
[2024-02-18 21:24] LABS: Bedside Glucose 231 mg/dL (74-106)
[2024-02-18] MEDS: BUDESONIDE/GLYCOPYR/FORMOTEROL 10.7 GM HFA.AER.AD INHALATION (21:26)
[2024-02-18] MEDS: Estrogens,Conj. 1 Tube VAGINAL (21:28)
[2024-02-19] VITALS (11 sets, daily range): BP systolic 105–116; BP diastolic 53–83; PULSE 83–99; RESP 16–22; TEMP 36.3–36.7; O2SAT 96–98; BMI 26.0; BMI 25.9
[2024-02-19] MEDS: Ipratropium/Albuterol Sulfate 3 ML AMPUL.NEB INHALATION ×6 (03:23→23:30)
[2024-02-19] MEDS: Alendronate Sodium 70 MG Tablet PO (05:33)
--- NOTE | 2024-02-19 05:42 | NURSING ---
turpin d/c' d as per order and pt tolerated well, there was 450cc of clear yellow urine emptied in the turpin bag. staff assisted with ashley-[facility].
[2024-02-19 05:52] LABS: Hematocrit 27.6 % (37-47); Hemoglobin 8.9 g/dL (12.0-15.0)
[2024-02-19 06:25] LABS: Anion Gap 3 (5-15); BUN 35 mg/dL (7-18); BUN/Creat Ratio 36.3 RATIO (10-20); Calcium,Total 8.9 mg/dL (8.5-10.1); Chloride 107 mmol/L (98-107); Creatinine, Serum 0.96 mg/dL (0.55-1.02); EST Glomerular Filtration Rate 61 mL/min (>60); Est Glom Filt Rate - Afr Amer 74 mL/min (>60); Estimated Creatinine Clearance 50.68 ml/min; Glucose 110 mg/dL (74-106); Potassium 4.3 mmol/L (3.5-5.1); Sodium Level 136 mmol/L (136-145)
[2024-02-19] MEDS: clonazePAM 0.5 MG Tablet PO (06:33)
[2024-02-19] MEDS: Enoxaparin 40 MG/0.4 ML Syringe SC (06:33)
[2024-02-19] MEDS: Nystatin Powder 15gm Bottle 1 APPLIC TOPICAL ×2 (06:34→20:46)
[2024-02-19 07:09] LABS: Bedside Glucose 111 mg/dL (74-106)
[2024-02-19] MEDS: Aspirin 81 MG TAB.CHEW PO (08:05)
[2024-02-19] MEDS: Calcium (Elemental) 500 MG Tablet 1000 MG PO (08:06)
[2024-02-19] MEDS: Ferrous Sulfate 325 MG Tablet PO (08:06)
[2024-02-19] MEDS: predniSONE 20 MG Tablet PO (08:08)
[2024-02-19] MEDS: Cyanocobalamin 500 MCG Tablet 1000 MCG PO (08:08)
[2024-02-19] MEDS: Spironolactone 25 MG Tablet 12.5 MG PO (08:08)
[2024-02-19] MEDS: BUDESONIDE/GLYCOPYR/FORMOTEROL 10.7 GM HFA.AER.AD INHALATION ×2 (08:10→20:48)
[2024-02-19] MEDS: TICAGRELOR 90 MG TABLET PO ×2 (08:11→20:48)
[2024-02-19] MEDS: guaiFENesin 600 MG Tablet PO ×2 (08:12→20:46)
[2024-02-19] MEDS: Ciprofloxacin 250 MG Tablet PO ×2 (08:12→20:47)
[2024-02-19] MEDS: Ketoconazole Cream 1 APPLIC TOPICAL ×2 (08:14→20:46)
[2024-02-19] MEDS: Psyllium 1 PACKET PO (08:14)
[2024-02-19] MEDS: Cholecalciferol (VIT D3) 25 MCG TABLET (1,000 UNITS) PO (08:15)
[2024-02-19] MEDS: SACUBITRIL/VALSARTAN 49-51 MG TABLET 1 EACH PO ×2 (08:15→20:47)
[2024-02-19] MEDS: Sertraline 50 MG Tablet PO (08:16)
[2024-02-19] MEDS: Metoprolol(XL)Succ 25 MG Tablet PO (08:19)
[2024-02-19 11:16] LABS: Bedside Glucose 124 mg/dL (74-106)
[2024-02-19 16:36] LABS: Bedside Glucose 207 mg/dL (74-106)
[2024-02-19] MEDS: Insulin Lispro 100 UNIT/ML INSULN.PEN SC (17:10)
[2024-02-19] MEDS: Estrogens,Conj. 1 Tube VAGINAL (20:45)
[2024-02-19] MEDS: Atorvastatin Calcium 40 MG Tablet PO (20:47)
[2024-02-19] MEDS: Senna/Docusate Sodium 1 Tablet 2 TABLET PO (20:49)
[2024-02-19] MEDS: Sodium Chloride 0.65% 1 SPRAY SPRAY.BTL 2 SPRAY NASAL (21:02)
[2024-02-19 21:45] LABS: Bedside Glucose 144 mg/dL (74-106)
[2024-02-20] VITALS (11 sets, daily range): BP systolic 99–121; BP diastolic 55–62; PULSE 80–105; RESP 16–18; TEMP 35.9–36.6; O2SAT 96–98; BMI 25.9
[2024-02-20] MEDS: 0.9% Saline Lock 10 ML Syringe IV (00:29)
[2024-02-20] MEDS: Ipratropium/Albuterol Sulfate 3 ML AMPUL.NEB INHALATION ×6 (03:25→23:08)
[2024-02-20] MEDS: Nystatin Powder 15gm Bottle 1 APPLIC TOPICAL ×2 (06:37→21:08)
[2024-02-20] MEDS: clonazePAM 0.5 MG Tablet PO (06:37)
[2024-02-20] MEDS: Enoxaparin 40 MG/0.4 ML Syringe SC (06:37)
[2024-02-20 07:08] LABS: Bedside Glucose 96 mg/dL (74-106)
[2024-02-20] MEDS: Spironolactone 25 MG Tablet 12.5 MG PO (08:10)
[2024-02-20] MEDS: Calcium (Elemental) 500 MG Tablet 1000 MG PO (08:10)
[2024-02-20] MEDS: Cyanocobalamin 500 MCG Tablet 1000 MCG PO (08:11)
[2024-02-20] MEDS: Sertraline 50 MG Tablet PO (08:11)
[2024-02-20] MEDS: Ferrous Sulfate 325 MG Tablet PO (08:12)
[2024-02-20] MEDS: Aspirin 81 MG TAB.CHEW PO (08:12)
[2024-02-20] MEDS: predniSONE 20 MG Tablet PO (08:12)
[2024-02-20] MEDS: BUDESONIDE/GLYCOPYR/FORMOTEROL 10.7 GM HFA.AER.AD INHALATION ×2 (10:44→21:04)
[2024-02-20] MEDS: Psyllium 1 PACKET PO (10:44)
[2024-02-20] MEDS: Ciprofloxacin 250 MG Tablet PO ×2 (10:45→21:08)
[2024-02-20] MEDS: TICAGRELOR 90 MG TABLET PO ×2 (10:45→21:05)
[2024-02-20] MEDS: guaiFENesin 600 MG Tablet PO ×2 (10:45→21:06)
[2024-02-20] MEDS: Cholecalciferol (VIT D3) 25 MCG TABLET (1,000 UNITS) PO (10:46)
[2024-02-20] MEDS: Ketoconazole Cream 1 APPLIC TOPICAL ×2 (11:03→21:08)
[2024-02-20 11:22] LABS: Bedside Glucose 171 mg/dL (74-106)
[2024-02-20] MEDS: Insulin Lispro 100 UNIT/ML INSULN.PEN SC ×3 (12:05→21:06)
[2024-02-20 16:27] LABS: Bedside Glucose 328 mg/dL (74-106)
--- NOTE | 2024-02-20 20:55 | NURSING ---
Pt refused all hs ADLs as well as changing into night time clothes. Pt states she didn't do anything today and was fine as she was.
[2024-02-20] MEDS: Atorvastatin Calcium 40 MG Tablet PO (21:06)
[2024-02-20] MEDS: SACUBITRIL/VALSARTAN 49-51 MG TABLET 1 EACH PO (21:07)
[2024-02-20] MEDS: Sodium Chloride 0.65% 1 SPRAY SPRAY.BTL 2 SPRAY NASAL (21:09)
[2024-02-20 21:24] LABS: Bedside Glucose 242 mg/dL (74-106)
[2024-02-20] MEDS: Estrogens,Conj. 1 Tube VAGINAL (21:40)
[2024-02-21] VITALS (9 sets, daily range): BP systolic 102–117; BP diastolic 52–65; PULSE 87–98; RESP 16–20; TEMP 36.5; O2SAT 96–99; BMI 25.9
[2024-02-21] MEDS: Ipratropium/Albuterol Sulfate 3 ML AMPUL.NEB INHALATION ×5 (03:10→23:04)
[2024-02-21] MEDS: Enoxaparin 40 MG/0.4 ML Syringe SC (05:55)
[2024-02-21] MEDS: clonazePAM 0.5 MG Tablet PO (05:55)
[2024-02-21] MEDS: Nystatin Powder 15gm Bottle 1 APPLIC TOPICAL (05:56)
[2024-02-21 06:34] LABS: Bedside Glucose 93 mg/dL (74-106)
[2024-02-21] MEDS: Metoprolol(XL)Succ 25 MG Tablet PO (07:52)
[2024-02-21] MEDS: Psyllium 1 PACKET PO (07:53)
[2024-02-21] MEDS: Cholecalciferol (VIT D3) 25 MCG TABLET (1,000 UNITS) PO (07:53)
[2024-02-21] MEDS: Cyanocobalamin 500 MCG Tablet 1000 MCG PO (07:53)
[2024-02-21] MEDS: SACUBITRIL/VALSARTAN 49-51 MG TABLET 1 EACH PO (07:53)
[2024-02-21] MEDS: Spironolactone 25 MG Tablet 12.5 MG PO (07:53)
[2024-02-21] MEDS: Sertraline 50 MG Tablet PO (07:54)
[2024-02-21] MEDS: Aspirin 81 MG TAB.CHEW PO (07:54)
[2024-02-21] MEDS: TICAGRELOR 90 MG TABLET PO ×2 (07:54→21:06)
[2024-02-21] MEDS: predniSONE 20 MG Tablet PO (07:54)
[2024-02-21] MEDS: Ketoconazole Cream 1 APPLIC TOPICAL ×2 (07:55→21:03)
[2024-02-21] MEDS: Ferrous Sulfate 325 MG Tablet PO (07:55)
[2024-02-21] MEDS: Calcium (Elemental) 500 MG Tablet 1000 MG PO (07:55)
[2024-02-21] MEDS: guaiFENesin 600 MG Tablet PO ×2 (07:55→21:06)
[2024-02-21] MEDS: BUDESONIDE/GLYCOPYR/FORMOTEROL 10.7 GM HFA.AER.AD INHALATION ×2 (07:56→21:07)
--- NOTE | 2024-02-21 10:40 | PN_ITS ---
Subjective Subjective Cris was seen on team rounds today. Her daughter Heriberto participated by phone. All questions were answered to their satisfaction. Afebrile VSS - Maintaining appropriate oxygen saturation on RA Oral intake - FOOD very good FLUIDS good, staying within her fluid restriction of 2000 cc a day. Discussed with nursing - no problems that need addressed........ slept well last night per nursing. Had an uneventful weekend. Reviewed the THERAPY notes Medication list reviewed. DuoNebs were increased to every 4 hours wiolao-kna-poahy on Wednesday. Cris is c/o a hoarse voice. This has been coming and going since prior to the recent CVA. She had a barium swallow as an OP and tells me it was negative. Denies sore throat. Has never seen an ENT of had a laryngoscopy. Denies painful swallowing. She has a hx of GERD and denies heartburn. She does tells me that she has awoken at night with sour taste in her mouth, heartburn, cough and increased SOB. Denies CP. Tells me that her weekend went pretty well and also tells me that her breathing is much better than at admission to rehab. No calf pain and no ankle swelling. Wonders why her BS's are high and I told her once again that it is the Prednisone. Denies dysuria and suprapubic pain. She tells me that she slept well last night. Cris tells me that she was ambulating without an AD prior to recent illness and she is still using a walker on rehab which she finds cumbersome. She would like to be able to walk with a cane prior to DC. Objective Data Objective Data Vital Signs: Vital Signs Temp Pulse Resp BP Pulse Ox O2 Del Method O2 Flow Rate 97.7 F L 95 16 115/65 98 Nasal Cannula 2 02/21/24 06:21 02/21/24 07:52 02/21/24 07:22 02/21/24 07:52 02/21/24 07:22 02/21/24 07:22 02/21/24 08:00 FiO2 2 02/11/24 20:30 Oxygen Flow Rate (L/min) 2 Oxygen Delivery Method Nasal Cannula Weight: 146 lb 6.191 oz Body Mass Index (BMI) 25.9 Intake & Output: Intake and Output for Last 24 Hours 02/19/24 02/20/2402/20/24 23:59 23:59 23:59 Intake Total 1720 / 1720 1979 / 1979 140 / 140 Output Total 2230 / 2230 3250 / 3250 400 / 400 Balance -510 / -510 -1270 / -1270 -260 / -260 Lab / Micro Data 02/19/24 05:44 02/19/24 05:44 Labs: Laboratory Results - last 24 hr 02/20/24 11:01: POC Glucose 171 H 02/20/24 16:08: POC Glucose 328 H 02/20/24 21:01: POC Glucose 242 H 02/21/24 06:12: POC Glucose 93 Micro: Microbiology 02/14/24 11:55 Urine Catheter - Catheter Urine Culture - Final ESBL Klebsiella pneumoniae pne 02/16/24 13:00 Mucosa - Nose Respiratory Panel (PCR) - Final 02/10/24 09:49 Stool Stool Occult Blood (KAREL) - Final Physical Exam Const alert, oriented x3 and no apparent distress Resp Resp Narrative: Very little pursed lip breathing today when she is done talking with me. She has no conversational dyspnea. She is not tachypneic. She has better air exchange today jaswinder when I instructed her to breath through her mouth and take a BIG breath......coughed with this. she has scattered exp wheeZing with no crackles today. there is wheezing over the anterior neck. Cardio regular rate, regular rhythm and no gallops Extremity no calf tenderness General Extremity: Negative for edema Assessment & Plan Assessment/Plan (1) HFrEF (heart failure with reduced ejection fraction): (2) Debility: (3) TIA (transient ischemic attack): (4) Adrenal insufficiency due to corticosteroid withdrawal: (5) Cystitis: (6) Anxiety disorder due to general medical condition with panic attack: (7) Chronic obstructive pulmonary disease with (acute) exacerbation: (8) Chronic insomnia: (9) Coronary artery disease: QUALIFIERS: Associated angina: unspecified whether angina present Coronary Disease-Associated Artery/Lesion type: unspecified vessel or lesion type [place] vs. transplanted heart: [place] heart Qualified Code(s): I25.10 - Atherosclerotic heart disease of [place] coronary artery without angina pectoris (10) Mixed stress and urge urinary incontinence: (11) Laryngitis: PLAN: Suspect this is due to GERD with laryngeal penetration PLAN: Plan 1. Continue therapy 2. Schedule the stool softeners and she will refuse when she feels her stools are too loose. 3. I am suspicious that the hoarseness is coming from reflux with spillage into the larynx. She is not on a PPI or an H2 ning so we will start Protonix 40 mg p.o. twice daily for 1 week and then decrease to 20 mg twice daily. She was reminded not to lie down for 30 to 60 minutes after eating. 4. Has been on Jardiance in the past, due to the HFrEF - will restart at 10 mg daily. continue the SSI. 5. Continue tapering the Prednisone down to 5 mg daily 6. tolerating Sertraline with no adverse side effects. Will continue Sertraline and Klonopin 0.5 mg daily........does better with therapy when she is not so anxious. Charges/Coding Visit Charges Inpatient E&M: 03115 Subs Hosp L2
[2024-02-21] MEDS: Insulin Lispro 100 UNIT/ML INSULN.PEN SC ×3 (11:46→21:07)
[2024-02-21 12:00] LABS: Bedside Glucose 175 mg/dL (74-106)
--- NOTE | 2024-02-21 13:05 | CASEMGMT ---
Social Work IDT met with patient and conference call with dtr, for Team meeting. Discussed patient's progress in PT/OT/ST/SN. Educated to [facility] insurance with [employer] 02/21. IDT is responsible for setting DC date. Pt expressed readiness to DC home and reports breathing has improved. ST and Dr would like to perform FEES. Pt requesting to learn to walk without the walker, likely with a cane. PT is agrees. IDT agreeable there are more goals to reach prior to DC. All in agreement to revisit next week at Team meeting. SW will continue to follow. Meli Reyna, LILIAM BENITEZW
[2024-02-21 17:24] LABS: Bedside Glucose 255 mg/dL (74-106)
[2024-02-21] MEDS: Estrogens,Conj. 1 Tube VAGINAL (21:05)
[2024-02-21] MEDS: Atorvastatin Calcium 40 MG Tablet PO (21:06)
[2024-02-21] MEDS: Pantoprazole Sodium 40 MG Tablet PO (21:06)
[2024-02-21] MEDS: Senna/Docusate Sodium 1 Tablet 2 TABLET PO (21:06)
[2024-02-21 22:07] LABS: Bedside Glucose 164 mg/dL (74-106)
[2024-02-22] VITALS (9 sets, daily range): BP systolic 115–137; BP diastolic 49–54; PULSE 74–94; RESP 16–20; TEMP 36.2–36.5; O2SAT 96–100; BMI 25.9
[2024-02-22] MEDS: Ipratropium/Albuterol Sulfate 3 ML AMPUL.NEB INHALATION ×6 (03:36→23:19)
[2024-02-22] MEDS: clonazePAM 0.5 MG Tablet PO (06:12)
[2024-02-22] MEDS: Enoxaparin 40 MG/0.4 ML Syringe SC (06:12)
[2024-02-22 06:25] LABS: Bedside Glucose 84 mg/dL (74-106)
[2024-02-22] MEDS: Calcium (Elemental) 500 MG Tablet 1000 MG PO (07:50)
[2024-02-22] MEDS: SACUBITRIL/VALSARTAN 49-51 MG TABLET 1 EACH PO ×2 (07:50→21:43)
[2024-02-22] MEDS: Senna/Docusate Sodium 1 Tablet 2 TABLET PO ×2 (07:51→21:43)
[2024-02-22] MEDS: Empagliflozin 10 MG Tablet PO (07:51)
[2024-02-22] MEDS: BUDESONIDE/GLYCOPYR/FORMOTEROL 10.7 GM HFA.AER.AD INHALATION ×2 (07:51→21:41)
[2024-02-22] MEDS: predniSONE 10 MG Tablet PO (07:51)
[2024-02-22] MEDS: Spironolactone 25 MG Tablet 12.5 MG PO (07:51)
[2024-02-22] MEDS: Metoprolol(XL)Succ 25 MG Tablet PO (07:52)
[2024-02-22] MEDS: Cholecalciferol (VIT D3) 25 MCG TABLET (1,000 UNITS) PO (07:52)
[2024-02-22] MEDS: Sertraline 50 MG Tablet PO (07:52)
[2024-02-22] MEDS: Psyllium 1 PACKET PO (07:52)
[2024-02-22] MEDS: Pantoprazole Sodium 40 MG Tablet PO ×2 (07:52→21:42)
[2024-02-22] MEDS: TICAGRELOR 90 MG TABLET PO ×2 (07:52→21:43)
[2024-02-22] MEDS: Aspirin 81 MG TAB.CHEW PO (07:52)
[2024-02-22] MEDS: Cyanocobalamin 500 MCG Tablet 1000 MCG PO (07:53)
[2024-02-22] MEDS: guaiFENesin 600 MG Tablet PO ×2 (07:53→21:43)
[2024-02-22] MEDS: Ketoconazole Cream 1 APPLIC TOPICAL ×2 (08:10→21:43)
[2024-02-22 12:02] LABS: Bedside Glucose 115 mg/dL (74-106)
[2024-02-22] MEDS: Ascorbic Acid 500 MG Tablet PO (12:27)
[2024-02-22] MEDS: Ferrous Sulfate 325 MG Tablet PO (12:28)
--- NOTE | 2024-02-22 13:22 | PCM.PROGNOTE ---
Subjective Subjective Afebrile VSS -blood pressure since yesterday a.m. has ranged from 102/55 to 137/47. She denies lightheadedness. The heart rate is within normal limits. Maintaining appropriate oxygen saturation on RA Oral intake - FOOD good FLUIDS good- continues to complain about fluid restriction but she is not even drinking as much as she is allowed.......unless the I&O's are not accurate. Having 1 bowel movement approximately every 1 to 2 days. The blood sugar record was reviewed. The blood sugar at sugar tends to be higher at supper. She was restarted on Jardiance yesterday. Prednisone has been decreased to 10 mg daily Discussed with nursing - no problems that need addressed Reviewed the THERAPY notes - therapy reports that the pursed lip breathing with exercise is much less.....night nursing states the anxiety is less at night now. Medication list reviewed. Still c/o hoarse voice and the feeling that something is caught in her throat. Not c/o SOB today. She denies CP, lightheadedness, dysuria and calf pain. No orthopnea and no palpitations. Tolerating exercise better. No panic attacks. Tolerating sertraline with no adverse side effects. Objective Data Objective Data Vital Signs: Vital Signs Temp Pulse Resp BP Pulse Ox O2 Del Method O2 Flow Rate 97.1 F L 85 16 137/49 H 98 Nasal Cannula 2 02/22/24 06:00 02/22/24 07:52 02/22/24 07:12 02/22/24 06:00 02/22/24 07:12 02/22/24 07:12 02/22/24 10:18 FiO2 2 02/11/24 20:30 Oxygen Flow Rate (L/min) 2 Oxygen Delivery Method Nasal Cannula Weight: 146 lb 2.664 oz Body Mass Index (BMI) 25.9 Intake & Output: Intake and Output for Last 24 Hours 02/20/24 02/21/24 02/22/24 23:59 23:59 23:59 Intake Total 1979 / 1979 1300 / 1300 500 / 500 Output Total 3250 / 3250 1850 / 1850 1400 / 1400 Balance -1270 / -1270 -550 / -550 -900 / -900 Lab / Micro Data 02/19/24 05:44 02/19/24 05:44 Labs: Laboratory Results - last 24 hr 02/21/24 16:57: POC Glucose 255 H 02/21/24 21:01: POC Glucose 164 H 02/22/24 06:05: POC Glucose 84 02/22/24 11:41: POC Glucose 115 H Micro: Microbiology 02/14/24 11:55 Urine Catheter - Catheter Urine Culture - Final ESBL Klebsiella pneumoniae pne 02/16/24 13:00 Mucosa - Nose Respiratory Panel (PCR) - Final 02/10/24 09:49 Stool Stool Occult Blood (KAREL) - Final Physical Exam Const alert, oriented x3 and no apparent distress Constitutional Narrative: Rare pursed lip breathing while I am talking with her. She is calm. HEENT moist oral mucous membranes Resp Resp Narrative: Diminished BS's throughout. No crackles. She has scatter exp wheezing but, I think this is being transmitted form the neck......Has some tight wheeZing over the neck. Cardio regular rate, regular rhythm and no gallops Cardio Narrative: Resting HR is in the upper limits of normal. GI normal to inspection, nondistended, normoactive bowel sounds, soft to palpation and non-tender Extremity no calf tenderness General Extremity: Negative for edema Skin General Skin Exam: no breakdown Rashes: no rashes Neuro CN's II-XII intact bilaterally Neuro Narrative: Generalized weakness....strength is steadily improving and so is the exercise tolerance. No sensory deficits. No ataxia and no visual field cuts. Speech: speech normal Psych Psych Narrative: Calmer, less easily agitated, less somatic complaints, sleeping better at night. Assessment & Plan Assessment/Plan (1) HFrEF (heart failure with reduced ejection fraction): (2) Debility: (3) TIA (transient ischemic attack): (4) Adrenal insufficiency due to corticosteroid withdrawal: (5) Cystitis: (6) Anxiety disorder due to general medical condition with panic attack: (7) Chronic obstructive pulmonary disease with (acute) exacerbation: (8) Chronic insomnia: (9) Coronary artery disease: QUALIFIERS: Coronary Disease-Associated Artery/Lesion type: unspecified vessel or lesion type [place] vs. transplanted heart: [place] heart Associated angina: unspecified whether angina present Qualified Code(s): I25.10 - Atherosclerotic heart disease of [place] coronary artery without angina pectoris (10) Mixed stress and urge urinary incontinence: (11) Laryngitis: (12) GERD (gastroesophageal reflux disease): QUALIFIERS: Esophagitis presence: with esophagitis Esophagitis bleeding: without hemorrhage Qualified Code(s): K21.00 - Gastro-esophageal reflux disease with esophagitis, without bleeding PLAN: I suspect she is refluxing into the posterior pharynx/larynx and this is causing the wheezing over the neck and the Globus sensation and the hoarseness. Await the results of the FEES to document this. PLAN: Plan 1. Continue therapy 2. Continue Protonix 40 mg twice daily 3. Speech therapy to schedule a FEES for later in the week. 4. Continue the aerosols at every 4 hours. 5. Continue Klonopin 0.5 mg every morning 6. She is tolerating sertraline 50 mg without any adverse side effects. Will increase to 100 mg later in the week if she continues to tolerate. Would like to get her off Klonopin if possible in the future. Charges/Coding Visit Charges Inpatient E&M: 85103 [facility] Hosp L1
[2024-02-22] MEDS: Insulin Lispro 100 UNIT/ML INSULN.PEN SC ×2 (16:43→21:45)
[2024-02-22 17:09] LABS: Bedside Glucose 158 mg/dL (74-106)
[2024-02-22] MEDS: Atorvastatin Calcium 40 MG Tablet PO (21:42)
[2024-02-22] MEDS: Estrogens,Conj. 1 Tube VAGINAL (21:44)
[2024-02-22] MEDS: Nystatin Powder 15gm Bottle 1 APPLIC TOPICAL (21:47)
[2024-02-22 22:32] LABS: Bedside Glucose 160 mg/dL (74-106)
[2024-02-23] VITALS (10 sets, daily range): BP systolic 101–119; BP diastolic 56–64; PULSE 90–110; RESP 17–22; TEMP 36.4–36.7; O2SAT 95–99; BMI 26.1
[2024-02-23] MEDS: Ipratropium/Albuterol Sulfate 3 ML AMPUL.NEB INHALATION ×5 (02:30→23:36)
[2024-02-23] MEDS: clonazePAM 0.5 MG Tablet PO (04:59)
[2024-02-23] MEDS: Enoxaparin 40 MG/0.4 ML Syringe SC (04:59)
[2024-02-23] MEDS: Nystatin Powder 15gm Bottle 1 APPLIC TOPICAL (05:00)
[2024-02-23 05:24] LABS: Bedside Glucose 91 mg/dL (74-106)
[2024-02-23] MEDS: Aspirin 81 MG TAB.CHEW PO (07:56)
[2024-02-23] MEDS: Calcium (Elemental) 500 MG Tablet 1000 MG PO (07:56)
[2024-02-23] MEDS: predniSONE 10 MG Tablet PO (07:57)
[2024-02-23] MEDS: Spironolactone 25 MG Tablet 12.5 MG PO (07:57)
[2024-02-23] MEDS: TICAGRELOR 90 MG TABLET PO ×2 (07:59→21:18)
[2024-02-23] MEDS: Cyanocobalamin 500 MCG Tablet 1000 MCG PO (07:59)
[2024-02-23] MEDS: SACUBITRIL/VALSARTAN 49-51 MG TABLET 1 EACH PO ×2 (08:00→21:23)
[2024-02-23] MEDS: Empagliflozin 10 MG Tablet PO (08:00)
[2024-02-23] MEDS: guaiFENesin 600 MG Tablet PO ×2 (08:01→21:18)
[2024-02-23] MEDS: Ketoconazole Cream 1 APPLIC TOPICAL ×2 (08:01→21:19)
[2024-02-23] MEDS: Psyllium 1 PACKET PO (08:01)
[2024-02-23] MEDS: BUDESONIDE/GLYCOPYR/FORMOTEROL 10.7 GM HFA.AER.AD INHALATION ×2 (08:02→21:20)
[2024-02-23] MEDS: Pantoprazole Sodium 40 MG Tablet PO ×2 (08:02→21:18)
[2024-02-23] MEDS: Senna/Docusate Sodium 1 Tablet 2 TABLET PO ×2 (08:02→21:18)
[2024-02-23] MEDS: Cholecalciferol (VIT D3) 25 MCG TABLET (1,000 UNITS) PO (08:03)
[2024-02-23] MEDS: Sertraline 50 MG Tablet PO (08:04)
[2024-02-23] MEDS: Metoprolol(XL)Succ 25 MG Tablet PO (08:08)
[2024-02-23 11:24] LABS: Bedside Glucose 130 mg/dL (74-106)
[2024-02-23] MEDS: Ascorbic Acid 500 MG Tablet PO (11:43)
[2024-02-23] MEDS: Ferrous Sulfate 325 MG Tablet PO (11:43)
[2024-02-23] MEDS: Insulin Lispro 100 UNIT/ML INSULN.PEN SC (15:57)
[2024-02-23 16:12] LABS: Bedside Glucose 258 mg/dL (74-106)
[2024-02-23] MEDS: Atorvastatin Calcium 40 MG Tablet PO (21:18)
[2024-02-23] MEDS: Estrogens,Conj. 1 Tube VAGINAL (21:19)
[2024-02-23] MEDS: Acetaminophen 325 MG Tablet 650 MG PO (21:50)
[2024-02-23 22:15] LABS: Bedside Glucose 142 mg/dL (74-106)
[2024-02-24] VITALS (8 sets, daily range): BP systolic 101–126; BP diastolic 57–58; PULSE 86–99; RESP 18–20; TEMP 36.1–36.8; O2SAT 97–98; BMI 25.9
[2024-02-24] MEDS: Ipratropium/Albuterol Sulfate 3 ML AMPUL.NEB INHALATION ×5 (03:20→23:48)
--- NOTE | 2024-02-24 03:41 | NURSING ---
Reviewed and agree with LPN. Leona Rainey, documentation and assessment charting.
[2024-02-24] MEDS: Enoxaparin 40 MG/0.4 ML Syringe SC (06:30)
[2024-02-24] MEDS: clonazePAM 0.5 MG Tablet PO (06:30)
[2024-02-24 07:28] LABS: Bedside Glucose 97 mg/dL (74-106)
[2024-02-24] MEDS: Sertraline 50 MG Tablet PO (07:46)
[2024-02-24] MEDS: Pantoprazole Sodium 40 MG Tablet PO ×2 (07:46→21:39)
[2024-02-24] MEDS: Senna/Docusate Sodium 1 Tablet 2 TABLET PO ×2 (07:46→21:39)
[2024-02-24] MEDS: Empagliflozin 10 MG Tablet PO (07:46)
[2024-02-24] MEDS: Ketoconazole Cream 1 APPLIC TOPICAL (07:46)
[2024-02-24] MEDS: Cholecalciferol (VIT D3) 25 MCG TABLET (1,000 UNITS) PO (07:46)
[2024-02-24] MEDS: BUDESONIDE/GLYCOPYR/FORMOTEROL 10.7 GM HFA.AER.AD INHALATION ×2 (07:47→21:40)
[2024-02-24] MEDS: Aspirin 81 MG TAB.CHEW PO (07:47)
[2024-02-24] MEDS: predniSONE 10 MG Tablet PO (07:47)
[2024-02-24] MEDS: Calcium (Elemental) 500 MG Tablet 1000 MG PO (07:47)
[2024-02-24] MEDS: guaiFENesin 600 MG Tablet PO ×2 (07:47→21:41)
[2024-02-24] MEDS: Spironolactone 25 MG Tablet 12.5 MG PO (07:47)
[2024-02-24] MEDS: Cyanocobalamin 500 MCG Tablet 1000 MCG PO (07:47)
[2024-02-24] MEDS: TICAGRELOR 90 MG TABLET PO ×2 (07:48→21:39)
[2024-02-24] MEDS: Psyllium 1 PACKET PO (07:48)
--- NOTE | 2024-02-24 09:42 | PN_ITS ---
Subjective Subjective Afebrile VSS - Maintaining appropriate oxygen saturation on RA-not tachypneic. Pulse ox ranges from 95 to 98% on 2 L but when checked on room air after rest it was 95% as well. Oral intake - FOOD good FLUIDS good Discussed with nursing - no problems that need addressed Reviewed the THERAPY notes-she is walking with a quad cane today in the [place]. The therapist is managing the oxygen. Medication list reviewed. She is c/o a mass in the supraclavicular fossa and no one can tell her what this is.........she has severe COPD with hyperinflation and the mass is actually the apex of the lung. she denies CP, heartburn, palpitations, lightheadedness. She tells me that she is having periodic paralysis of the Fingers and toes......I suspect this is related to anxiety/hyperventilation and she is having paralysis due to metabolic alkalosis and the potassium moving into the IC space. Denies dysuria and calf tenderness. She is no longer complaining of urinary urgency and the incontinence is somewhat improved. I told her not to wait until she feels like she has to urinate but, to have a regular toileting schedule so she has time to make it to the toilet. Objective Data Objective Data Vital Signs: Vital Signs Temp Pulse Resp BP Pulse Ox O2 Del Method O2 Flow Rate 98.2 F 98 18 101/58 L 98 Nasal Cannula 2 02/24/24 06:00 02/24/24 07:45 02/24/24 07:45 02/24/24 06:00 02/24/24 07:45 02/24/24 07:45 02/24/24 08:00 FiO2 2 02/11/24 20:30 Oxygen Flow Rate (L/min) 2 Oxygen Delivery Method Nasal Cannula Weight: 146 lb 6.191 oz Body Mass Index (BMI) 25.9 Intake & Output: Intake and Output for Last 24 Hours 02/22/24 02/23/24 02/24/24 23:59 23:59 23:59 Intake Total 1380 / 1380 1480 / 1480 480 / 480 Output Total 2950 / 2950 1700 / 1700 400 / 400 Balance -1570 / -1570 -220 / -220 80 / 80 Lab / Micro Data 02/19/24 05:44 02/19/24 05:44 Labs: Laboratory Results - last 24 hr 02/23/24 11:05: POC Glucose 130 H 02/23/24 15:55: POC Glucose 258 H 02/23/24 21:53: POC Glucose 142 H 02/24/24 06:22: POC Glucose 97 Micro: Microbiology 02/14/24 11:55 Urine Catheter - Catheter Urine Culture - Final ESBL Klebsiella pneumoniae pne 02/16/24 13:00 Mucosa - Nose Respiratory Panel (PCR) - Final 02/10/24 09:49 Stool Stool Occult Blood (KAREL) - Final Physical Exam Const alert, oriented x3 and no apparent distress Constitutional Narrative: Pursed li-p breathing is MUCH improved.....She was not pursed lip breathing while talking with me today and sitting in the recliner. I observed her ambulating in the [place] today with a QC and she had mild pursed lip breathing but, she was still able to converse. General Appearance: cooperative HEENT moist oral mucous membranes HEENT Narrative: No lesions of the buccal mucosa or tongue. Denies mouth pain or painful swallowing. Still feels as though she has something caught in her throat. Resp Resp Narrative: Fair air exchange today, certainly much better than at admission. She has scattered expiratory wheezing but the wheezing is much tighter over the anterior neck. No crackles today. She is not tachypneic at rest. Effort and Inspection: Negative for tachypneic, respiratory distress, labored or uses accessory muscles Auscultation: diminished lung sounds Cardio regular rate, regular rhythm and no gallops Cardio Narrative: Resting heart rate is in the 90s but no longer with heart rates in the high 100s. GI normal to inspection, nondistended, normoactive bowel sounds, soft to palpation and non-tender GI Narrative: Moving bowels regularly Extremity no calf tenderness General Extremity: Negative for edema Skin General Skin Exam: no breakdown Rashes: no rashes Neuro CN's II-XII intact bilaterally Neuro Narrative: Generalized weakness....strength is steadily improving and so is the exercise tolerance. No sensory deficits. No ataxia and no visual field cuts. Speech: speech normal Psych thought process normal and cooperative Psych Narrative: Calmer, less easily agitated, less somatic complaints, sleeping better at night. Appearance: appropriate Mood & Affect: anxious Assessment & Plan Assessment/Plan (1) HFrEF (heart failure with reduced ejection fraction): (2) Debility: (3) TIA (transient ischemic attack): (4) Adrenal insufficiency due to corticosteroid withdrawal: (5) Cystitis: (6) Anxiety disorder due to general medical condition with panic attack: (7) Chronic obstructive pulmonary disease with (acute) exacerbation: (8) Chronic insomnia: (9) Coronary artery disease: QUALIFIERS: Coronary Disease-Associated Artery/Lesion type: u nspecified vessel or lesion type [place] vs. transplanted heart: [place] heart A ssociated angina: unspecified whether angina present Qualified Code(s): I25.10 - Atherosclerotic heart disease of [place] coronary artery without angina pectoris (10) Mixed stress and urge urinary incontinence: (11) Laryngitis: (12) GERD (gastroesophageal reflux disease): QUALIFIERS: Esophagitis presence: with esophagitis Esophagitis bleeding: without hemorrhage Qualified Code(s): K21.00 - Gastro-esophageal reflux disease with esophagitis, without bleeding PLAN: I suspect she is refluxing into the posterior pharynx/larynx and this is causing the wheezing over the neck and the Globus sensation and the hoarseness. Await the results of the FEES to document this. PLAN: Plan 1. Continue therapy 2. Check a CBC and BMP in the a.m. 3. Prednisone has been weaned down to 5 mg daily and will continue with this dose indefinitely as she has had adrenal insufficiency secondary to frequent high-dose steroids. Blood pressure is stable and she denies lightheadedness. She had a FEES today and I was present in the room for the test. Cris tolerated this well with no panic attack. There is no report from yet however there was swelling and inflammation of the posterior pharnyx, the epiglottis and the arytenoids. I was also told she has some silent aspiration. Await the final report form ST. Will continue with the Protonix. I am hopeful that the swelling and inflammation will improve with the Protonix. wants to repeat a MBS when she has had some additional time on Protonix to allow the healing to occur. Charges/Coding Visit Charges Inpatient E&M: 62912 Subs Hosp L1
[2024-02-24 11:40] LABS: Bedside Glucose 102 mg/dL (74-106)
[2024-02-24] MEDS: Ascorbic Acid 500 MG Tablet PO (11:58)
[2024-02-24] MEDS: Ferrous Sulfate 325 MG Tablet PO (11:58)
--- NOTE | 2024-02-24 15:43 | CASEMGMT ---
Social Work SW met with patient to discuss setting DC date. Pt agreeable. SW offered DC 02/28. Pt agreed. Dtr can transport as she is off work that day. IDT recommending skilled HHC. SW provided printed list of skilled HHC agencies including quality and resource data via [employer]. Pt to review and will notify this worker of choices. Pt denied palliative services at DC. Plan: DC home with dtr 02/28, HHC PT/OT/SN LILIAM TanW
[2024-02-24 17:07] LABS: Bedside Glucose 182 mg/dL (74-106)
[2024-02-24] MEDS: Insulin Lispro 100 UNIT/ML INSULN.PEN SC (17:11)
[2024-02-24] MEDS: Atorvastatin Calcium 40 MG Tablet PO (21:39)
[2024-02-24] MEDS: Acetaminophen 325 MG Tablet 650 MG PO (21:39)
[2024-02-24 22:55] LABS: Bedside Glucose 125 mg/dL (74-106)
[2024-02-25] VITALS (7 sets, daily range): BP systolic 130; BP diastolic 62; PULSE 74–92; RESP 16–22; TEMP 35.8; O2SAT 98–99; BMI 25.9
--- NOTE | 2024-02-25 02:20 | NURSING ---
Reviewed and agree with Leona CLAROS, documentation and assessment charting.
[2024-02-25] MEDS: clonazePAM 0.5 MG Tablet PO (06:11)
[2024-02-25] MEDS: Enoxaparin 40 MG/0.4 ML Syringe SC (06:11)
[2024-02-25 06:21] LABS: Hematocrit 29.2 % (37-47); Hemoglobin 9.1 g/dL (12.0-15.0); Mean Corp Hgb Conc 31.2 g/dL (32-36); Mean Corpuscular Hgb 29.2 pg (27.0-32.0); Mean Corpuscular Volume 93.6 fL (81-99); Mean Platelet Vol. 9.9 fl (6.2-12.0); Platelet Count 319 K/mm3 (150-450); RBC Distribution Width CV 16.7 % (11.6-14.6); RBC Distribution Width SD 57.2 fl (35.1-43.9); Red Blood Count 3.12 M/mm3 (4.2-5.4); White Blood Count 13.6 K/mm3 (4.4-11.0)
[2024-02-25 06:28] LABS: Anion Gap 5 (5-15); BUN 37 mg/dL (7-18); BUN/Creat Ratio 32.2 RATIO (10-20); Calcium,Total 9.1 mg/dL (8.5-10.1); Chloride 104 mmol/L (98-107); Creatinine, Serum 1.15 mg/dL (0.55-1.02); EST Glomerular Filtration Rate 50 mL/min (>60); Est Glom Filt Rate - Afr Amer 60 mL/min (>60); Estimated Creatinine Clearance 42.27 ml/min; Glucose 98 mg/dL (74-106); Potassium 4.4 mmol/L (3.5-5.1); Sodium Level 138 mmol/L (136-145)
[2024-02-25] MEDS: Ipratropium/Albuterol Sulfate 3 ML AMPUL.NEB INHALATION ×5 (06:40→23:25)
[2024-02-25 07:11] LABS: Bedside Glucose 106 mg/dL (74-106)
[2024-02-25] MEDS: Calcium (Elemental) 500 MG Tablet 1000 MG PO (09:06)
[2024-02-25] MEDS: Cyanocobalamin 500 MCG Tablet 1000 MCG PO (09:07)
[2024-02-25] MEDS: predniSONE 5 MG Tablet PO (09:07)
[2024-02-25] MEDS: Aspirin 81 MG TAB.CHEW PO (09:09)
--- NOTE | 2024-02-25 09:34 | HP.SPFEES ---
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 Pt was sent to [facility] ED 01/31/[address] 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 She also reported worsening chest pain on exertion with dyspnea and numbness, weakness on her right upper extremity after her cardiology appointment. She was admitted to the ICU and given TNK d/t due to vertigo, right arm numbness, subjective weakness and truncal ataxia. CT head negative, CT abdomen/pelvis negative for aortic dissection. Repeat CT head negative. MRI brain negative for stroke. Neurology suspects ongoing vertigo is not related to stroke, recommend vestibular PT. Pt was admitted to [facility] on 02/09/2024 for rehabilitation/strengthening, prior to discharge home. During stay, there was concern for worsening hoarseness and some swallowing difficulty. Pt was recommended for FEES by Dr. Cameron. Current Diet: Drinks/Liquids:: Thin Foods:: Regular Vocal Quality: Observations:: Hoarse Cognition: Observations:: WNL Position During FEES: Position During FEES:: Slightly reclined Location: In Chair Fiberoptic Endoscope: Size: 3.4 mm Nare Used:: Left Anatomical Findings: Anatomical Findings:: The scope was passed through the patient's nare w/o difficulty. Velopharyngeal port closed at rest. When cued for phonation (dunna) velopharyngeal port appeared very narrow w/ edematous posterior pharyngeal wall. Small amount of white mucous collected on tongue base. Thin, clear secretions were evident in velopharyngeal port and oropharynx periodically during the assessment. Cobblestoning evident on posterior pharyngeal wall likely secondary to hx of GERD. Edematous, reddish oropharynx, hypopharynx, and laryngeal vestibule. Edema was most pronounced on L posterior pharyngeal wall, the ventricular folds, and the arytenoids. Incomplete adduction of the middle 1/3 and anterior commissure of the true vocal folds. Penetration-Aspiration Scale Penetration-Aspiration Scale Thin Liquids by Teaspoon Food/Drink Provided:: Green-colored water Swallow Onset Location:: Tongue Base PAS Score: PAS Score *5 Visual Analysis of Swallowing Efficiency and Safety (VASES) after the swallow: Hypopharynx and Vocal Folds VASES Comments:: Residues: <5% bilateral pyriform sinuses, <5% true vocal folds. Thin Liquids by Single Cup Food/Drink Provided:: Green-colored water Swallow Onset Location:: Pyriform Sinuses PAS Score: PAS Score *5 Visual Analysis of Swallowing Efficiency and Safety (VASES) after the swallow: Oropharynx, Epiglottis and Vocal Folds Comments:: Residues: <5% true vocal folds, <5% R and L pyriform sinus. Strategies Trialed:: Chin tuck = not effective. R head turn = not effective. Additional Comments:: After chin tuck, trace amount of green liquid residue spilled to the interarytenoid space. Thin Liquids by Single Straw Food/Drink Provided:: Green-colored water Swallow Onset Location:: Epiglottis PAS Score: PAS Score *5 Visual Analysis of Swallowing Efficiency and Safety (VASES) after the swallow: Oropharynx, Hypopharynx and Vocal Folds Comments:: Residues - 5% vallecula, 10% bilateral aryepiglottic folds, 5% pyriform sinuses, <5% true vocal folds. Strategies Trialed:: Effortful = not effective Mildly Thick Liquids by Single Cup Food/Drink Provided:: Green-colored water Swallow Onset Location:: Vallecula PAS Score: PAS Score *5 Visual Analysis of Swallowing Efficiency and Safety (VASES) after the swallow: Hypopharynx and Vocal Folds Comments:: Residues: <5% true vocal folds, <5% R and L pyriform sinus. Puree Textures Food/Drink Provided:: Vanilla pudding Swallow Onset Location:: Tongue Base PAS Score: PAS Score *1 Visual Analysis of Swallowing Efficiency and Safety (VASES) after the swallow: Hypopharynx Comments:: Residue: <5% R pyriform sinus Regular Textures Food/Drink Provided:: 04/27 Kristin Mcintosh cookie Swallow Onset Location:: Tongue Base PAS Score: PAS Score *1 Visual Analysis of Swallowing Efficiency and Safety (VASES) after the swallow: Hypopharynx Comments:: Residues: 5% bilaterally on aryepiglottic folds. Diagnosis/Impressions Diagnosis: Mild pharyngeal dysphagia R13.12 Impressions: Pharyngeal phase findings.. -Swallow onset w/ liquids at the epiglottis and aryepiglottic folds. -Decreased airway closure with consistent laryngeal penetration of trace liquid (thin or mildly thick) to the vocal folds. No reflexive cough. SPRINKLER INSPECTOR did not visualize aspiration, but suspects pt is experiencing microaspiration. -Decreased vocal fold adduction, increasing risk for aspiration during the swallow. Recommendations Diet: Regular Textures and Thin Liquids Compensatory Strategies: Small Bites, Small Sips, Slow Rate, Sitting upright and Remain sitting upright for 30 minutes after PO intake Recommend Repeat Instrumental Swallow Assessment: Yes Comments: 1-3 weeks after implementation of oropharyngeal exercise program Need for Skilled Speech Therapy Services: Yes Comments: -Train the patient in use of strategies to decrease risk for aspiration and reflux aspiration. -Ongoing assessment of diet tolerance of recommended textures. -Train the patient in oropharyngeal exercise program to bolus control, airway closure, and vocal fold adduction. Education Completed: 1. Described result of evaluation., 2. Pt understands evaluation & agrees with goals and treatment plan. and 7. Pt requires further education on strategies & risks.
[2024-02-25] MEDS: Spironolactone 25 MG Tablet 12.5 MG PO (10:49)
[2024-02-25] MEDS: BUDESONIDE/GLYCOPYR/FORMOTEROL 10.7 GM HFA.AER.AD INHALATION ×2 (10:49→22:00)
[2024-02-25] MEDS: TICAGRELOR 90 MG TABLET PO ×2 (10:50→21:58)
[2024-02-25] MEDS: Pantoprazole Sodium 40 MG Tablet PO ×2 (10:50→21:58)
[2024-02-25] MEDS: Empagliflozin 10 MG Tablet PO (10:50)
[2024-02-25] MEDS: SACUBITRIL/VALSARTAN 49-51 MG TABLET 1 EACH PO ×2 (10:50→21:59)
[2024-02-25] MEDS: Senna/Docusate Sodium 1 Tablet 2 TABLET PO ×2 (10:51→21:58)
[2024-02-25] MEDS: guaiFENesin 600 MG Tablet PO ×2 (10:51→21:58)
[2024-02-25] MEDS: Sertraline 100 MG Tablet PO (10:52)
[2024-02-25] MEDS: Cholecalciferol (VIT D3) 25 MCG TABLET (1,000 UNITS) PO (10:52)
[2024-02-25] MEDS: Metoprolol(XL)Succ 25 MG Tablet PO (10:53)
[2024-02-25 11:37] LABS: Bedside Glucose 102 mg/dL (74-106)
[2024-02-25] MEDS: Ferrous Sulfate 325 MG Tablet PO (12:18)
[2024-02-25] MEDS: Ascorbic Acid 500 MG Tablet PO (12:18)
--- NOTE | 2024-02-25 13:03 | CASEMGMT ---
Addendum entered by Meli Reyna 02/28/24 08:45: [facility] cannot accept d/t OON. Referral sent to [facility]. Addendum entered by Felisha Cohen 02/25/24 13:49: [facility] is unable to accept pt. Pt notified and additional choices are [facility] and [facility]. Referrals to be sent. DIEUDONNE Martino Original Note: Social Work SW met with pt to discuss dc plan. Pt preferred home health provider is [facility]. VM left with [facility] with referral for PT/OT/SN and dc on 03/02. SW will await return call of determination of acceptance. SW spoke with pt regarding DME. Pt is requesting a quad cane upon return home. Script for Quad Cane provided to pt. DIEUDONNE Martino
[2024-02-25 17:07] LABS: Bedside Glucose 160 mg/dL (74-106)
[2024-02-25] MEDS: metFORMIN HCl 500 MG Tablet PO (17:24)
[2024-02-25] MEDS: Insulin Lispro 100 UNIT/ML INSULN.PEN SC (17:24)
[2024-02-25] MEDS: Atorvastatin Calcium 40 MG Tablet PO (21:58)
[2024-02-25] MEDS: Ketoconazole Cream 1 APPLIC TOPICAL (21:59)
[2024-02-25] MEDS: Nystatin Powder 15gm Bottle 1 APPLIC TOPICAL (22:00)
[2024-02-25 22:32] LABS: Bedside Glucose 113 mg/dL (74-106)
[2024-02-26] VITALS (10 sets, daily range): BP systolic 96–117; BP diastolic 46–60; PULSE 80–93; RESP 16–20; TEMP 35.7–36.5; O2SAT 98–99; BMI 25.9; BMI 25.7
[2024-02-26] MEDS: Ipratropium/Albuterol Sulfate 3 ML AMPUL.NEB INHALATION ×5 (03:20→23:31)
[2024-02-26] MEDS: Alendronate Sodium 70 MG Tablet PO (06:01)
[2024-02-26] MEDS: Enoxaparin 40 MG/0.4 ML Syringe SC (06:54)
[2024-02-26] MEDS: clonazePAM 0.5 MG Tablet PO (06:54)
[2024-02-26] MEDS: Nystatin Powder 15gm Bottle 1 APPLIC TOPICAL ×2 (06:55→20:41)
[2024-02-26] MEDS: BUDESONIDE/GLYCOPYR/FORMOTEROL 10.7 GM HFA.AER.AD INHALATION ×2 (07:30→20:39)
[2024-02-26] MEDS: Senna/Docusate Sodium 1 Tablet 2 TABLET PO ×2 (07:30→20:42)
[2024-02-26 07:31] LABS: Bedside Glucose 103 mg/dL (74-106)
[2024-02-26] MEDS: Psyllium 1 PACKET PO (07:31)
[2024-02-26] MEDS: Cholecalciferol (VIT D3) 25 MCG TABLET (1,000 UNITS) PO (07:31)
[2024-02-26] MEDS: guaiFENesin 600 MG Tablet PO ×2 (07:31→20:41)
[2024-02-26] MEDS: Pantoprazole Sodium 40 MG Tablet PO ×2 (07:32→20:42)
[2024-02-26] MEDS: Sertraline 100 MG Tablet PO (07:32)
[2024-02-26] MEDS: metFORMIN HCl 500 MG Tablet PO ×2 (07:32→17:25)
[2024-02-26] MEDS: Cyanocobalamin 500 MCG Tablet 1000 MCG PO (07:32)
[2024-02-26] MEDS: Calcium (Elemental) 500 MG Tablet 1000 MG PO (07:33)
[2024-02-26] MEDS: SACUBITRIL/VALSARTAN 49-51 MG TABLET 1 EACH PO (07:33)
[2024-02-26] MEDS: Aspirin 81 MG TAB.CHEW PO (07:34)
[2024-02-26] MEDS: TICAGRELOR 90 MG TABLET PO ×2 (07:34→20:40)
[2024-02-26] MEDS: Spironolactone 25 MG Tablet 12.5 MG PO (07:34)
[2024-02-26] MEDS: Ketoconazole Cream 1 APPLIC TOPICAL ×2 (07:35→20:42)
[2024-02-26] MEDS: Empagliflozin 10 MG Tablet PO (07:36)
[2024-02-26] MEDS: predniSONE 5 MG Tablet PO (07:36)
[2024-02-26] MEDS: Metoprolol(XL)Succ 25 MG Tablet PO (07:38)
[2024-02-26] MEDS: Ferrous Sulfate 325 MG Tablet PO (11:53)
[2024-02-26] MEDS: Ascorbic Acid 500 MG Tablet PO (11:53)
[2024-02-26 12:00] LABS: Bedside Glucose 136 mg/dL (74-106)
[2024-02-26 16:35] LABS: Bedside Glucose 161 mg/dL (74-106)
[2024-02-26] MEDS: Insulin Lispro 100 UNIT/ML INSULN.PEN SC (17:25)
[2024-02-26] MEDS: Atorvastatin Calcium 40 MG Tablet PO (20:40)
[2024-02-26 21:43] LABS: Bedside Glucose 121 mg/dL (74-106)
[2024-02-27] VITALS (9 sets, daily range): BP systolic 102–120; BP diastolic 44–54; PULSE 80–96; RESP 16–22; TEMP 36.4; O2SAT 95–100; BMI 25.7; BMI 25.9
[2024-02-27] MEDS: Ipratropium/Albuterol Sulfate 3 ML AMPUL.NEB INHALATION ×6 (03:35→23:58)
[2024-02-27] MEDS: Nystatin Powder 15gm Bottle 1 APPLIC TOPICAL ×2 (06:27→22:34)
[2024-02-27] MEDS: Enoxaparin 40 MG/0.4 ML Syringe SC (06:27)
[2024-02-27] MEDS: clonazePAM 0.5 MG Tablet PO (06:33)
[2024-02-27 07:02] LABS: Bedside Glucose 102 mg/dL (74-106)
[2024-02-27] MEDS: SACUBITRIL/VALSARTAN 49-51 MG TABLET 1 EACH PO ×2 (07:45→22:32)
[2024-02-27] MEDS: BUDESONIDE/GLYCOPYR/FORMOTEROL 10.7 GM HFA.AER.AD INHALATION ×2 (07:46→22:27)
[2024-02-27] MEDS: Ketoconazole Cream 1 APPLIC TOPICAL ×2 (07:46→22:31)
[2024-02-27] MEDS: Metoprolol(XL)Succ 25 MG Tablet PO (07:46)
[2024-02-27] MEDS: Pantoprazole Sodium 40 MG Tablet PO ×2 (07:47→22:30)
[2024-02-27] MEDS: Calcium (Elemental) 500 MG Tablet 1000 MG PO (07:47)
[2024-02-27] MEDS: TICAGRELOR 90 MG TABLET PO ×2 (07:47→22:30)
[2024-02-27] MEDS: guaiFENesin 600 MG Tablet PO ×2 (07:47→22:29)
[2024-02-27] MEDS: Cholecalciferol (VIT D3) 25 MCG TABLET (1,000 UNITS) PO (07:47)
[2024-02-27] MEDS: Sertraline 100 MG Tablet PO (07:47)
[2024-02-27] MEDS: Aspirin 81 MG TAB.CHEW PO (07:47)
[2024-02-27] MEDS: Senna/Docusate Sodium 1 Tablet 2 TABLET PO ×2 (07:47→22:29)
[2024-02-27] MEDS: predniSONE 5 MG Tablet PO (07:48)
[2024-02-27] MEDS: Empagliflozin 10 MG Tablet PO (07:48)
[2024-02-27] MEDS: Spironolactone 25 MG Tablet 12.5 MG PO (07:48)
[2024-02-27] MEDS: metFORMIN HCl 500 MG Tablet PO ×2 (07:48→16:33)
[2024-02-27] MEDS: Cyanocobalamin 500 MCG Tablet 1000 MCG PO (07:48)
[2024-02-27] MEDS: Ferrous Sulfate 325 MG Tablet PO (12:01)
[2024-02-27] MEDS: Ascorbic Acid 500 MG Tablet PO (12:01)
[2024-02-27 12:20] LABS: Bedside Glucose 124 mg/dL (74-106)
[2024-02-27] MEDS: Insulin Lispro 100 UNIT/ML INSULN.PEN SC (16:35)
[2024-02-27 16:55] LABS: Bedside Glucose 168 mg/dL (74-106)
[2024-02-27 21:25] LABS: Bedside Glucose 124 mg/dL (74-106)
[2024-02-27] MEDS: Atorvastatin Calcium 40 MG Tablet PO (22:30)
[2024-02-28] VITALS (12 sets, daily range): BP systolic 99–151; BP diastolic 52–73; PULSE 91–111; RESP 16–20; TEMP 36.2–36.6; O2SAT 97–99; BMI 25.9; BMI 26.5
[2024-02-28] MEDS: Ipratropium/Albuterol Sulfate 3 ML AMPUL.NEB INHALATION ×6 (03:37→23:33)
[2024-02-28] MEDS: Enoxaparin 40 MG/0.4 ML Syringe SC (06:40)
[2024-02-28] MEDS: Nystatin Powder 15gm Bottle 1 APPLIC TOPICAL ×2 (06:40→22:16)
[2024-02-28] MEDS: clonazePAM 0.5 MG Tablet PO (06:40)
[2024-02-28 06:41] LABS: Bedside Glucose 99 mg/dL (74-106)
[2024-02-28] MEDS: Spironolactone 25 MG Tablet 12.5 MG PO (08:00)
[2024-02-28] MEDS: BUDESONIDE/GLYCOPYR/FORMOTEROL 10.7 GM HFA.AER.AD INHALATION ×2 (08:00→22:14)
[2024-02-28] MEDS: Aspirin 81 MG TAB.CHEW PO (08:02)
[2024-02-28] MEDS: metFORMIN HCl 500 MG Tablet PO ×2 (08:02→16:40)
[2024-02-28] MEDS: Cyanocobalamin 500 MCG Tablet 1000 MCG PO (08:02)
[2024-02-28] MEDS: predniSONE 5 MG Tablet PO (08:02)
[2024-02-28] MEDS: Calcium (Elemental) 500 MG Tablet 1000 MG PO (08:02)
[2024-02-28] MEDS: TICAGRELOR 90 MG TABLET PO ×2 (09:46→22:14)
[2024-02-28] MEDS: Empagliflozin 10 MG Tablet PO (09:46)
[2024-02-28] MEDS: Pantoprazole Sodium 40 MG Tablet PO ×2 (09:46→22:17)
[2024-02-28] MEDS: Senna/Docusate Sodium 1 Tablet 2 TABLET PO ×2 (09:46→22:17)
[2024-02-28] MEDS: Cholecalciferol (VIT D3) 25 MCG TABLET (1,000 UNITS) PO (09:46)
[2024-02-28] MEDS: Sertraline 100 MG Tablet PO (09:46)
[2024-02-28] MEDS: guaiFENesin 600 MG Tablet PO ×2 (09:46→22:16)
--- NOTE | 2024-02-28 10:55 | PCM.PROGNOTE ---
Subjective Subjective Cris was seen on team rounds today. Cris's daughter Heriberto participated by phone. Afebrile VSS - Maintaining appropriate oxygen saturation on RA Oral intake - FOOD good FLUIDS fluid intake is erratic but mostly fair to good. Discussed with nursing - no problems that need addressed Reviewed the THERAPY notes - able to ambulate 207 ft today with a SC. Medication list reviewed. Cris tells me that the problem with urinary urgency and burning has improved since Premarin was started. She no longer has burning. We discussed having regular toilet breaks to prevent incontinence due to urgency. Forced denies lightheadedness, cephalgia, chest pain, nausea/vomiting/abdominal pain, dysuria and calf tenderness. Having some heartburn. Still has the sensation that there is something stuck in her throat. Objective Data Objective Data Vital Signs: Vital Signs Temp Pulse Resp BP Pulse Ox O2 Del Method O2 Flow Rate 97.2 F L 99 16 99/52 L 97 Nasal Cannula 2 02/28/24 08:33 02/28/24 10:18 02/28/24 08:33 02/28/24 10:18 02/28/24 08:33 02/28/24 08:33 02/28/24 08:33 FiO2 2 02/11/24 20:30 Oxygen Flow Rate (L/min) 2 Oxygen Delivery Method Nasal Cannula Weight: 150 lb Body Mass Index (BMI) 26.5 Intake & Output: Intake and Output for Last 24 Hours 02/26/24 02/27/24 02/28/24 23:59 22:59 23:59 Intake Total 1680 / 1680 2270 / 2270 400 / 400 Output Total 2550 / 2550 1800 / 1800 400 / 400 Balance -870 / -870 470 / 470 0 / 0 Lab / Micro Data 02/25/24 05:28 02/25/24 05:28 Labs: Laboratory Results - last 24 hr 02/27/24 12:00: POC Glucose 124 H 02/27/24 16:34: POC Glucose 168 H 02/27/24 20:56: POC Glucose 124 H 02/28/24 06:22: POC Glucose 99 Micro: Microbiology 02/14/24 11:55 Urine Catheter - Catheter Urine Culture - Final ESBL Klebsiella pneumoniae pne 02/16/24 13:00 Mucosa - Nose Respiratory Panel (PCR) - Final 02/10/24 09:49 Stool Stool Occult Blood (KAREL) - Final Physical Exam Const alert and oriented x3 Constitutional Narrative: Still doing some pursed lip breathing but, no conversational dyspnea and she is able to speak in complete sentences. General Appearance: cooperative HEENT Mouth: dry mucous membranes Neck Neck Narrative: Tight wheezing over the neck anteriorly. No adenopathy General: trachea midline Resp Resp Narrative: mild scattered exp wheezing. No cough with deep breathing. No crackles. Better air exchange, jaswinder in the bases. Overall she tells me that her breathing is much better than when she first presented to the rehab unit. Able to speak in complete sentences Effort and Inspection: Negative for tachypneic Cardio regular rate and regular rhythm Cardio Narrative: HR increases with exertion........had been staying in the 90's but, 111 today. I suspect this is due to mild dehydration. Urine OP is frequently exceeding intake. GI normal to inspection, nondistended, normoactive bowel sounds, soft to palpation and non-tender Extremity no calf tenderness General Extremity: Negative for edema Skin General Skin Exam: no breakdown Rashes: no rashes Psych Psych Narrative: Much calmer that at admission to rehab. She tolerated a FEES without panic attack........at admission she had panic attacks when I was just talking with her. She is stable onb Zoloft and Klonopin 0.5 mg daily. Not getting agitated like she was earlier in the admission. Sleeping better at night. 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 transplanted heart: [place] heart Associated angina: unspecified whether angina present Qualified Code(s): I25.10 - Atherosclerotic heart disease of [place] coronary artery without angina pectoris (9) Mixed stress and urge urinary incontinence: (10) Laryngitis: (11) GERD (gastroesophageal reflux disease): QUALIFIERS: Esophagitis presence: with esophagitis Esophagitis bleeding: without hemorrhage Qualified Code(s): K21.00 - Gastro-esophageal reflux disease with esophagitis, without bleeding PLAN: Plan 1. Plan DC home tomorrow with [facility]. 2. We discussed vaccines today for Shingrix, Flu, COVID and RSV today. She has only ever had 1 COVID vaccine. Does not get Flu vac because she tells me that it makes her sick........I explained the rx is due to the immune response and NOT to having the virus. I explained she is at high risk for serious complications, including , if she gets a respiratory infx. She has had Shingles in the past. She has frequently been on high dose steroids.......her immune system has been compromised. We have tapered her down to 5 mg of Prednisone and plan on keeping her on this indefinitely to prevent the adrenal insufficiency she had at admission to rehab. She will need to get a medic alert bracelet for steroid dependence. Will give the Flu vac today as she is agreeable. Will check to see if she can have COVID. 3. Check a CBC, BMP and magnesium in the a.m. 4. No changes to the drug regimen at this time 5. Requested a new PCP. She is going to follow up with [facility] later this month. 6. Needs a repeat FEES to assess swallowing as OP. 7. Told to elevate the HOB on 6 blocks to help with reflux. No eating or drinking for 2 hours prior to lying down. IF she still has swelling, hoarseness and the globus sensation at the next FEES would refer to ENT. Charges/Coding Visit Charges Inpatient E&M: 69071 Subs Hosp L2
[2024-02-28] MEDS: Ascorbic Acid 500 MG Tablet PO (11:59)
[2024-02-28] MEDS: Ferrous Sulfate 325 MG Tablet PO (11:59)
[2024-02-28 12:15] LABS: Bedside Glucose 115 mg/dL (74-106)
--- NOTE | 2024-02-28 12:34 | CASEMGMT ---
Addendum entered by Meli Reyna 02/28/24 13:15: [facility] can provide ST. Orders sent. Original Note: Social Work IDT met with patient and dtr via conference call for Team meeting. Discussed patient's progress in PT/OT/ST/SN. Confirmed DC home 02/28. Dtr now has to work 02/28, but can transport after work. SW educated on [facility] company outcomes. SW referred to the next highest star ratings on 4/5 stars, per pt request. [facility] accept. Pt prefers [facility] as she had [facility] prior and was not please. SW will ensure [facility] can provide the ST, the Dr is recommending. Pt has no DME needs. SW followed up with each [facility] agency to ensure they can add ST. Will await outcome. SW sent [facility] order and will send DC paperwork once available. Plan: DC home with dtr 02/28, [facility] PT/OT/ST/SN Meli Reyna, LILIAM [employer] WORK[employer]
[2024-02-28] MEDS: FLU VACCINE **HIGH DOSE** TV 24-25 180 MCG/0.5 ML SYRINGE IM (15:30)
[2024-02-28 17:23] LABS: Bedside Glucose 125 mg/dL (74-106)
[2024-02-28 21:00] LABS: Bedside Glucose 110 mg/dL (74-106)
[2024-02-28] MEDS: SACUBITRIL/VALSARTAN 49-51 MG TABLET 1 EACH PO (22:15)
[2024-02-28] MEDS: Atorvastatin Calcium 40 MG Tablet PO (22:15)
[2024-02-28] MEDS: Estrogens,Conj. 1 Tube VAGINAL (22:16)
[2024-02-29 03:28] VITALS: PULSE 102; RESP 18
[2024-02-29] MEDS: Ipratropium/Albuterol Sulfate 3 ML AMPUL.NEB INHALATION ×3 (03:28→11:54)
[2024-02-29 05:09] LABS: Bedside Glucose 116 mg/dL (74-106)
[2024-02-29 05:10] VITALS: BMI 26.9
[2024-02-29 05:53] LABS: Hematocrit 28.8 % (37-47); Mean Corp Hgb Conc 31.3 g/dL (32-36); Mean Corpuscular Hgb 29.7 pg (27.0-32.0); Mean Platelet Vol. 9.8 fl (6.2-12.0); Platelet Count 244 K/mm3 (150-450); RBC Distribution Width CV 16.7 % (11.6-14.6); RBC Distribution Width SD 57.4 fl (35.1-43.9); Red Blood Count 3.03 M/mm3 (4.2-5.4); White Blood Count 13.6 K/mm3 (4.4-11.0)
[2024-02-29 06:00] VITALS: BP 109/62; PULSE 111; RESP 21; TEMP 36.3; O2SAT 99
[2024-02-29 06:24] LABS: Anion Gap 7 (5-15); BUN 28 mg/dL (7-18); Chloride 101 mmol/L (98-107); EST Glomerular Filtration Rate 58 mL/min (>60); Est Glom Filt Rate - Afr Amer 71 mL/min (>60); Estimated Creatinine Clearance 49.45 ml/min; Glucose 108 mg/dL (74-106); Magnesium 2.1 mg/dL (1.6-2.6); Sodium Level 137 mmol/L (136-145)
[2024-02-29] MEDS: Enoxaparin 40 MG/0.4 ML Syringe SC (06:54)
[2024-02-29] MEDS: clonazePAM 0.5 MG Tablet PO (06:54)
[2024-02-29 06:55] VITALS: RESP 16
[2024-02-29] MEDS: Nystatin Powder 15gm Bottle 1 APPLIC TOPICAL (06:55)
[2024-02-29 07:20] LABS: Bedside Glucose 111 mg/dL (74-106)
--- NOTE | 2024-02-29 07:30 | NURSING ---
04:40- Staff reacted to hearing pt wretching and found pt with head over waste basket attempting to vomit. An emesis bag was provided but pt admits that there was nothing coming up. Pt c/o achiness, especially at rt deltoid where a flu shot was administered yesterday. A cool, wet washcloth was provided for neck and forehead. Pt had to use the toilet, which originally woke pt up. After pt became stable enough to transfer, the [facility] [place] [facility] used for [facility]ting and ensure safety. Pt was repositioned in bed sitting up and Lenka Rubi was provided. The wet wash cloths were refreshened. Blood sugar was 116. VS were bp- 109/62, hr 111, temp- 97.4, r- 21, and SpO2 was 99%. Pt used pursed lip breathing to regulate breathing to a slower pace. Upon reassessment within 20 minutes later, pt was asleep and left undisturbed.
[2024-02-29] MEDS: metFORMIN HCl 500 MG Tablet PO (08:08)
[2024-02-29] MEDS: Aspirin 81 MG TAB.CHEW PO (08:08)
[2024-02-29] MEDS: Calcium (Elemental) 500 MG Tablet 1000 MG PO (08:08)
[2024-02-29] MEDS: Cyanocobalamin 500 MCG Tablet 1000 MCG PO (08:09)
[2024-02-29] MEDS: predniSONE 5 MG Tablet PO (08:09)
[2024-02-29] MEDS: BUDESONIDE/GLYCOPYR/FORMOTEROL 10.7 GM HFA.AER.AD INHALATION (08:10)
[2024-02-29] MEDS: Spironolactone 25 MG Tablet 12.5 MG PO (08:10)
[2024-02-29] MEDS: guaiFENesin 600 MG Tablet PO (08:12)
[2024-02-29] MEDS: Pantoprazole Sodium 40 MG Tablet PO (08:12)
[2024-02-29] MEDS: Empagliflozin 10 MG Tablet PO (08:12)
[2024-02-29 08:13] VITALS: BP 109/62; PULSE 111
[2024-02-29] MEDS: Metoprolol(XL)Succ 25 MG Tablet PO (08:13)
[2024-02-29] MEDS: Senna/Docusate Sodium 1 Tablet 2 TABLET PO (08:13)
[2024-02-29] MEDS: Cholecalciferol (VIT D3) 25 MCG TABLET (1,000 UNITS) PO (08:14)
[2024-02-29] MEDS: Sertraline 100 MG Tablet PO (08:14)
[2024-02-29] MEDS: TICAGRELOR 90 MG TABLET PO (08:16)
--- NOTE | 2024-02-29 09:56 | EX.DISCHREH ---
Providers Date of Admission: 02/09/24 Date of Discharge: 02/29/24 Primary Care Physician: YINKA Banda Consultations 02/14/24 13:13 Consult: Hospice / Palliative Care Routine Consulting Provider: [facility] Reason for Consult: PALLIATIVE: [facility] - COPD, stage 3 Emphysema, HFpEF, CAD EMERGENT Consult: No MD Notified: Yes Date Notified: 02/14/24 Time Notified: 13:13 Method of Notification: Verbal Reason For Visit: CVA Diagnosis Discharge Diagnosis (1) Debility: Status: Acute Code(s): R53.81 - Other malaise (2) TIA (transient ischemic attack): Status: Acute Code(s): G45.9 - Transient cerebral ischemic attack, unspecified Plan: HAd stroke sx. Initial NC CT brain negative for acute infarct. TPA given. Follow up MRI negative for CVA but, had some persistent neurologic deficits. (3) Adrenal insufficiency due to corticosteroid withdrawal: Status: Acute Code(s): E27.3 - Drug-induced adrenocortical insufficiency; T38.0X5A - Adverse effect of glucocorticoids and synthetic analogues, initial encounter Plan: Frequent visitor to ED. Very frequently placed on high dose steroids. Started high dose steroids for acute exacerbation COPD and tapered over 10 days to 5 mg daily and she is being discharged on 5 mg daily. Plan on continuing 5 mg daily to prevent adrenal insufficiency going forward since she has severe COPD and is often on steroids. No one is keeping track of how often she is on high dose steroids and how much she is taking. (4) Anxiety disorder due to general medical condition with panic attack: Status: Chronic Code(s): F06.4 - Anxiety disorder due to known physiological condition; F41.0 - Panic disorder [episodic paroxysmal anxiety] Plan: Discharging on Klonopin 0.5 mg daily in a.m. and sertraline 100 mg daily. She is tolerating these medications well and anxiety is under much better control. Was able to tolerate a FEES with no panic attack prior to DC. (5) Chronic obstructive pulmonary disease with (acute) exacerbation: Status: Resolved Code(s): J44.1 - Chronic obstructive pulmonary disease with (acute) exacerbation (6) Chronic insomnia: Status: Chronic Code(s): F51.04 - Psychophysiologic insomnia (7) HFrEF (heart failure with reduced ejection fraction): Status: Chronic Code(s): I50.20 - Unspecified systolic (congestive) heart failure Plan: Continue Entresto and will follow up with cardiology, Dr. Cabrera. (8) Coronary artery disease: Status: Chronic Code(s): I25.10 - Atherosclerotic heart disease of [place] coronary artery without angina pectoris Qualifiers: Associated angina: unspecified whether angina present Coronary Disease-Associated Artery/Lesion type: unspecified vessel or lesion type [place] vs. transplanted heart: [place] heart Qualified Code(s): I25.10 - Atherosclerotic heart disease of [place] coronary artery without angina pectoris Plan: Had a NSTEMI in July 2023 and had CPI with JORDI. Continue dual antiplatelet agents. Follow up with Dr. Cabrera. (9) Mixed stress and urge urinary incontinence: Status: Chronic Code(s): N39.46 - Mixed incontinence Plan: Improved with Premarin vaginal cream. Will continue this twice a week. Frequent toileting stops during the day while awake (every 2-3 hours). Avoid caffeine which increases bladder irritability. (10) Laryngitis: Status: Chronic Code(s): J04.0 - Acute laryngitis Plan: She has chronic reflux and she is refluxing into the larynx. FEES revealed cobblestoning/swelling of the posterior pharynx, swollen erythematous epiglottis, swollen/erythematous arytenoids, vocal cord swelling with microaspiration due to the vocal cords not completely abducting. Started on Protonix 40 mg BID. Still with laryngitis at ID but, voice quality is improving. She is doing swallowing exercises given to her by . Will need a follow up FEES. IF follow up FEES still shows swelling, incomplete abduction of the cords would refer to ENT. Give printed literature about non-pharmacologic management of GERD. (11) GERD (gastroesophageal reflux disease): Status: Chronic Code(s): K21.9 - Gastro-esophageal reflux disease without esophagitis Qualifiers: Esophagitis bleeding: without hemorrhage Esophagitis presence: with esophagitis Qualified Code(s): K21.00 - Gastro-esophageal reflux disease with esophagitis, without bleeding (12) Cystitis: Status: Resolved Code(s): N30.90 - Cystitis, unspecified without hematuria Plan 1. ID home with [facility]. 2. We discussed vaccines today including Shingrix, Flu, COVID, Pneumovax and today. She received Flu vac on 02/28/24. On 02/28 she had some achiness, nausea and pain at the injection site. Was advised she could take Tylenol as needed. 3. Lab on the day of discharge shows a white blood cell count of 13.6 which is likely elevated due to the 5 mg of prednisone daily and this is stable. Hemoglobin is stable at 9 and platelets are within normal limits. BMP is remarkable for an elevated BUN at 28 with a creatinine of 1.0 and this is actually improved from a BUN of 37 with creatinine of 1.15 on 02/25/2024. Mag is normal at 2.1. 4. Requested a new PCP. She is going to follow up with [facility] Gast[facility] later this month. 5. Needs a repeat FEES to assess swallowing as OP. If no improvement in the swelling or abduction of the cords should be referred to ENT. She will continue her swallowing exercises at home. 6. Told to elevate the HOB on 6 blocks to help with reflux. No eating or drinking for 1-2 hours prior to lying down. Avoid chocolate, peppermint and caffeine. No smoking and no nicotine gum. 7. She will follow up with Dr. Cabrera for cardiology and with Dr. Ugalde for pulmonary. 8. Continue O2 at 2 LPM at rest. OK to increase to 3 LPM with exertion. Medications at Discharge Home Medications albuterol sulfate 90 mcg/actuation aerosol inhaler 2 puff inhalation Q4H PRN sob, wheezing 02/09/24 alendronate 70 mg tablet 70 mg PO QWEEK osteoporosis 02/09/24 aspirin 81 mg chewable tablet 1 tab PO DAILY heart health 02/09/24 atorvastatin 40 mg tablet (Lipitor) 40 mg PO QHS cholesterol 02/09/24 calcium carbonate (Calcium 500) 1,000 mg PO DAILY supplement 02/09/24 cholecalciferol (vitamin D3) 25 mcg (1,000 unit) capsule 1,000 unit PO DAILY supplement 02/09/24 cyanocobalamin (vitamin B-12) 1,000 mcg capsule 1,000 mcg PO DAILY supplement 02/09/24 ferrous sulfate 325 mg (65 mg iron) tablet 325 mg PO DAILY supplement 02/09/24 icosapent ethyl 1 gram capsule (Vascepa) 1 g PO DAILY cholesterol 02/09/24 metoprolol succinate 25 mg tablet,extended release 24 hr 25 mg PO DAILY blood pressure 02/09/24 sacubitril 49 mg-valsartan 51 mg tablet (Entresto) 1 tab PO BID blood pressure 02/09/24 sodium chloride 0.65 % nasal spray aerosol (Deep Sea Nasal) 2 spray intranasal Q2H PRN dry nasal passages 02/09/24 ticagrelor 90 mg tablet (Brilinta) 90 mg PO BID CAD 02/09/24 budesonide 160 mcg-glycopyr 9 mcg-formot 4.8 mcg/actuation HFA inhaler (Lyftztri Aerosphere) 2 inh inhalation BID SOB/Wheezing 02/18/24 acetaminophen 325 mg tablet 650 mg (2 x 325 mg) PO Q6H PRN PRN Pain Score 1-10 #1 TAB 02/28/24 clonazepam 0.5 mg tablet 0.5 mg PO 0600 1 month #30 tabs 02/28/24 conjugated estrogens 0.625 mg/gram vaginal cream 0.625 mg vaginal .Twice weekly #30 grams 02/28/24 empagliflozin 10 mg tablet (Jardiance) 10 mg PO DAILY #30 tabs 02/28/24 ipratropium 0.5 mg-albuterol 3 mg (2.5 mg base)/3 mL nebulization soln 3 ml inhalation Q4H.RT #180 vials 02/28/24 metformin 500 mg tablet 500 mg PO BIDCM #60 tabs 02/28/24 pantoprazole 40 mg tablet,delayed release 40 mg PO BID #60 tabs 02/28/24 prednisone 5 mg tablet 5 mg PO DAILYCM #30 tabs 02/28/24 psyllium husk (aspartame) 3 gram oral powder packet (Daily Fiber (psyllium-aspartame)) 1 packet PO DAILY #60 ea 02/28/24 sertraline 100 mg tablet 100 mg PO DAILY #30 tabs 02/28/24 spironolactone 25 mg tablet 12.5 mg (1/2 x 25 mg) PO SuTuWeThSa@1000 #30 tabs 02/28/24 Hospital Course Operations None Procedures - (FEES: Diagnosis: Mild pharyngeal dysphagia R13.12 Impressions: Pharyngeal phase findings.. -Swallow onset w/ liquids at the epiglottis and aryepiglottic folds. -Decreased airway closure with consistent laryngeal penetration of trace liquid (thin or mildly thick) to the vocal folds. No reflexive c) Summary of Care Provided Minutes Spent on Discharge: 45 Hospital Course: Cris Aguirre is a 68-year-old female with a past medical history of coronary artery disease, NSTEMI in July 2023, PCI/JORDI in July [address] Cabrera, hypertension, diabetes mellitus type 2, hyperlipidemia, TIA, tobacco dependence in remission (started smoking at 12 years of age and quit smoking at 66), severe COPD [place] class III, chronic heart failure with reduced ejection fraction (30% in July of 2023), diverticulosis, peripheral vascular disease with history of a femoral stent, chronic GERD, chronic laryngitis, chronic insomnia and osteoporosis who was admitted to [facility] on 01/31/2024 with complaints of vertigo, paresthesias of the right arm, subjective weakness and truncal ataxia. A stat noncontrast CT brain was negative for acute findings and she was administered TNK. CTA of the head and neck showed no significant vascular disease. Brain MRI 24 hours after TNK was negative for stroke. Transthoracic echocardiogram showed a 78% ejection fraction with mild to moderate tricuspid regurgitation. This is up from 30% in July 2023 and she is taking Entresto. She was transferred to the acute inpatient rehab unit at [facility] on 02/09/2024 for 3 hours of therapy daily to restore function/independence at or near her level prior to the recent neurologic event. At the time of admission to rehab she complained of severe fatigue/weakness and nausea. she was hypotensive and tachycardic. she is frequently on high dose steroids as an OP for complaints of smothering. She is a frequent visitor to ED's for SOB and is always placed on steroids at these visits. She was diagnosed with probable adrenal insufficiency. Unfortunately we were told the lab could not run a cortisol because the machine was broken. She was started on Prednisone 40 mg for adrenal insufficiency and exacerbation COPD. This was tapered over 10-14 days to 5 mg daily. She was discharged on 5 mg daily. I would continue 5 mg daily since she is often on high dose steroids and no one has been keeping track of how much and how often. Cris was extremely anxious when I first met her. She was hyperventilating and pursed lip breathing whenever anyone would even talk with her. She was having lightheadedness and tingling in her fingers and toes. At times she would develop contractures in the fingers and toes more likely than not due to periodic paralysis related to hyperventilation. Cris had no conversational dyspnea with these episodes and could talk in complete paragraphs with no tachypnea or pursed lip breathing......the pursed lip breathing would start again as soon as she quit talking......unless you could distract her. This was contributing significantly to her complaint of smothering. Lungs were diminished but, she initially had no wheezing. She was started on low dose Klonopin and Sertraline. She occasionally had a dose of Xanax 0.25 mg for panic attack. Over time she significantly improved with regard to anxiety. She had a FEES done on 02/25/24 and she was able to tolerate this with no panic attack which is impressive compared to how she was at admission to rehab. Cris has GERD and she was not on a PPI at admission. She denied heartburn initially but, later c/o heartburn. She has frequent laryngitis and it got worse on rehab. She was started on Protonix 40 mg p.o. twice daily. After few days her voice was improving but she still had laryngitis and she was complaining that she felt as though something was stuck in her throat and she could not clear it. She has had modified barium swallows in the past that showed no obstruction and per Cris no abnormalities. A fiberoptic endoscopic exam was done on 02/25/2024 and it showed swelling with cobblestoning and erythema of the posterior pharynx, a swollen reddened epiglottis, reddened swollen arytenoids and swollen vocal cords. The vocal cords failed to completely abduct and she had microaspiration with swallowing. She will need a follow up FEES by a ST going forward......or a laryngoscopy by ENT. Favor FEES be done to see if she continues to have microaspiration. Cris has not had a COVID vaccine, Shingrix VAX, RSV vaccine or Pneumovax. She received influenza vaccine 1 day prior to discharge from rehab. The following day she had some mild achiness, soreness at the injection site and felt tired. She understands that these symptoms are part of the immune reaction to the vaccine and not due to influenza virus itself. I recommended that she get the vaccines she has not received allowing 7-10 days to pass between the vaccines. Diaz did very well in therapy. Prior to discharge she was able to do 14 sit to stands in 30 seconds using her bilateral upper extremities to rise. We have been increasing her oxygen to 3 L/min when she is exerting herself in therapy. When at rest she is on 2 L/min and maintaining a pulse ox in the high 90s. She desaturates with exercise. She has ambulated up to 205 feet with a straight cane at standby assist and her oxygen tank and toe. She is able to ascend/descend two 6 inch steps with no handrail using a straight cane at contact-guard assist so that she may enter her home. She is modified independent with eating, grooming, bathing, upper body dressing, lower body dressing, toilet transfer and toileting. We recommend supervision/set up for tub/shower transfer for the first 1 to 2 weeks at home as most accidents/falls happened in the bathroom. Cris was discharged on 02/29/2024 and will have home health care with [facility] for PT/OT/ST/SN. She has a straight cane at home and had no DME needs at discharge. She has a CT chest scheduled in mid March and will follow-up with Dr. Ugalde from pulmonology on 04/24/2024 at 11 AM. She will also follow-up with Dr. Cabrera for cardiology care. She requested a new PCP and she has an appt to follow up with [facility]ley Gastel[facility] on 03/20/24. Physical Exam Const alert, oriented x3 and no apparent distress Constitutional Narrative: No conversational dyspnea today however when she quits talking she proceeds to pursed lip breathing. She seems a little anxious today. HEENT head/scalp atraumatic HEENT Narrative: Mucous membranes are little dry. Eyes PERRL, EOMs intact bilaterally, conjunctivae normal and no scleral icterus Eyes Narrative: No discharge from the eyes and no mattering of the eyelashes. No visual field cuts. No nystagmus. Neck supple and No nodes General: trachea midline Chest Chest: symmetrical chest wall rise Resp Resp Narrative: The lungs are clear to auscultation today. No wheezing, no crackles. Breath sounds are diminished throughout but overall she has much better air exchange than she did at admission to rehab. No conversational dyspnea. She still has some mild wheezing over the anterior neck but this is coarse today and much improved over what it has been. Cardio regular rate and regular rhythm Cardio Narrative: Resting heart rate runs in the high 80s to low 90s. No gallop. No ectopy. Heart sounds are somewhat distant and I suspect this is related to hyperinflation of the lungs due to severe COPD. GI normal to inspection, nondistended, normoactive bowel sounds, soft to palpation and non-tender GI Narrative: No guarding with palpation no CVA tenderness Narrative: Denies dysuria. Urinary urgency has improved with the addition of Premarin vaginal cream to her drug regimen. Extremity no calf tenderness and no pedal edema Skin no jaundice and no mottling Neuro oriented x3, CN's II-XII intact bilaterally and moves all extremities Neuro Narrative: No visual field cuts. No ataxia. No side neglect. Strength is equal bilaterally in the upper extremities and lower extremities. Psych cooperative, speech normal, denies homicidal ideation and denies suicidal ideation Psych Narrative: Agitation/irritability is much improved since the addition of sertraline and Klonopin to her drug regimen. She is making good eye contact with the people who speak to her. She is attentive to what is being said to her. Still a little anxious but not having panic attacks any longer. Still complaining of some difficulty sleeping at night but nursing states that she is sleeping pretty well. Good appetite. She is appropriate. Affect is not flat. She is not tearful. Appearance: well kempt Weight / BMI Weight Weight: 151 lb 14.376 oz Body Mass Index (BMI) 26.9 ABG / Lab / Microbiology Data 02/29/24 05:34 02/29/24 05:34 Laboratory: Laboratory Results - last 24 hr 02/28/24 11:24: POC Glucose 115 H 02/28/24 16:37: POC Glucose 125 H 02/28/24 20:32: POC Glucose 110 H 02/29/24 04:40: POC Glucose 116 H 02/29/24 05:34: WBC 13.6 H, RBC 3.03 L, Hgb 9.0 L, Hct 28.8 L, MCV 95.0, MCH 29.7, MCHC 31.3 L, RDW Std Deviation 57.4 H, RDW Coeff of Matty 16.7 H, Plt Count 244, MPV 9.8, Sodium 137, Potassium 4.0, Chloride 101, Carbon Dioxide 29.0, Anion Gap 7, BUN 28 H, Creatinine 1.00, Estim Creat Clear Calc 49.45, Est GFR (MDRD) Af Amer 71, Est GFR (MDRD) Non-Af 58 L, BUN/Creatinine Ratio 28.0 H, Glucose 108 H, Calcium 9.0, Magnesium 2.1 02/29/24 06:58: POC Glucose 111 H Microbiology: Microbiology 02/14/24 11:55 Urine Catheter - Catheter Urine Culture - Final ESBL Klebsiella pneumoniae pne 02/16/24 13:00 Mucosa - Nose Respiratory Panel (PCR) - Final 02/10/24 09:49 Stool Stool Occult Blood (KAREL) - Final Indicators for Scoring Admitted with or Primary Diagnosis of CVA/Stroke: Yes Hx of CVA/Stroke: Yes Modified [place] Score MRS Score at time of Evaluation: 2-Slight disability (Down from 4 at admission to rehab.) NIHSS NIHSS 1a. Level of Consciousness: Alert; keenly responsive 1b. LOC Questions: Answers BOTH questions correctly. 1c. LOC Commands: Performs both tasks correctly. 2. Best Gaze: Normal 3. Visual: No visual loss 4. Facial Palsy: Normal symmetrical movements 5a. Left Arm: No drift; arm holds 90 (or 45) degrees for full 10 seconds 5b. Right Arm: No drift; arm holds 90 (or 45) degrees for full 10 seconds 6a. Left Leg: No drift; leg holds 30-degree position for full 5 seconds 6b. Right Leg: No drift; leg holds 30-degree position for full 5 seconds 7. Limb Ataxia: Absent 8. Sensory: Normal; no sensory loss 9. Best Language: No aphasia; normal 10. Dysarthria: Normal 11. Extinction and Inattention: No abnormality Total: 0 Stroke Questions Stroke Team Activated: No Meaningful Use Info Meaningful Use Meaningful Use Diagnoses (Choose all that apply): Ischemic CVA CVA Therapy Assessed for PT,OT and/or ST?: Yes Ischemic Stroke Antithrombotic order at d/c?: Yes Dx of Atrial fib/flutter?: No Anticoagulant at discharge?: No Reason anticoagulant not ordered: Treatment not Indicated Statin Dosing Therapy Reference: STATIN DOSE THERAPY REFERENCE: * Patients > 75 years receive moderate or high dose statin therapy. * Patients 75 years or YOUNGER should receive HIGH intensity statin dose unless contraindicated. You will be required to document reason for non-treatment if statin daily dose does not meet guidelines. HIGH DOSE STATIN THERAPY DAILY Atorvastatin > than or = to 40 mg Rosuvastatin > than or = to 20 mg Amlodipine + Atorvastatin > than or = to 2.5/40 mg Ezetimibe + Simvastatin 10/80 mg Simvastatin 80mg Statins at discharge?: Yes If patient is 75 or younger, pt will be discharged on HIGH intensity statin.: Yes Primary Dx Acute Ischemic CVA?: Yes IV thrombolytic ordered during stay?: No Reason IV thrombolytic not ordered: Procedure not Indicated (She had TNK in the ER at the time of the stroke.) Discharge Plan Admission Admit Date/Time: 02/09/24 14:44 Primary Reason for Your Visit: Debility due to TIA/CVA Attending Provider: Lilia Cameron Primary Care Provider: Cara Yang Consulting Providers: Orlin Gardner Chi; Meek Penaloza; Shaneka Ba; Leisa Saravia; Setphanie Goldstein; Vandana Somers NP; Kimberly Bazan Instructions Patient Instructions: Your Body's Response to Anxiety, GERD Lifestyle Changes, How Acid Reflux Affects Your Throat, COPD Controlled Breathing Dc, Chronic Lung Disease Avoid These, MENA, ED Hyperventilation Syndrome Additional Instructions / Restrictions: 1. You have a lot going on Cris. You have moderate to severe COPD, coronary artery disease (CAD), a weakened heart due to the heart attack in July of 2023 and CAD, reflux of stomach contents into the larynx, severe anxiety with panic attacks and these all lead to increased shortness of breath. You are so much better than you were when I first started seeing you. I think you have learned a lot and will have better quality of life going forward. You are on quite a few medications.....you need to continue taking all of them. You also need to continue to exercise at least 6 days a week to maintain the muscle strength you have gained and the better exercise tolerance. 2. People with all your breathing problems can really get into trouble IF they get a respiratory infection. They end up in the hospital and can even end up requiring a breathing tube/machine to breath for them until the infection improves. Sometimes in patients with severe lung disease it is very difficult to get you off the machine. You have never been intubated (this means to have a tube put down your throat and into the trachea so you can be placed on a machine to breath for you). I suggest you have a talk with Heriberto while you are doing well about what you would want IF you can not come off the machine. Would you want CPR? Would you want intubated? What would you want done IF things continue to get worse despite being on a ventilator? This way she will know what you want and can comply with your wishes. 3. The problem with the urinary urgency and incontinence is doing better with the estrogen cream. Avoid caffeine. It makes you bladder irritable and causes bladder spasms and urgency. Go to the bathroom and try to urinate every 2-3 hours during the day. don't wait until your bladder is full and then you can't make it to the bathroom in time. I would avoid any surgeries that are not absolutely necessary. With the severe lung disease and the heart disease you are at significantly increased risk of bad complications with surgery. 4. You will need to have a follow up endoscopy (look at the vocal cords and larnyx with a scope) in a couple weeks. IF there is still swelling of the vocal cords and the epiglottis I suggest you follow up with an ENT doctor. Right now you are on a medication called Protonix (also called Pantoprazole) to decrease the acid in the stomach contents that are refluxing up into the larynx and causing swelling of the throat and vocal cords. Acid is very caustic to the lining of the throat, voice box and the trachea. You should not lie down for at least 1 hour after eating or drinking. No caffeine, chocolate, peppermint.......these things make it more likely that you will reflux. Placing the head of your bed up on 4-6 inch blocks helps to clear the acid from the esophagus. Elevating your head on Pillows or a wedge can INCREASE the reflux because it increases the intra-abdominal pressure forcing the stomach contents out of the stomach an into the esophagus. There is a medication called Reglan (also called metoclopramide)n which can help get the acid out of the esophagus. There are other things that we can try. This is causing a significant increase in your wheezing so we have to keep after this. 5. Vaccines are very important in people with chronic disease, jaswinder people with chronic lung disease who are on steroid frequently. Steroids are made by the adrenal gland. When you are chronically getting high dose steroids the adrenal gland quits working and then if you take the steroids away the adrenal gland does not start working right away and you get very tired, your heart races, your BP drops, you get dizzy and lightheaded, feel very weak and you can even . This is called adrenal insufficiency. You had adrenal insufficiency when you came to rehab. We put you back on steroids and tapered you down to 5 mg a day. 5 mg a day will keep you from dying of adrenal insufficiency. If someone is on high dose steroid more than 2-3 times a year they develop adrenal insufficiency. 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 You had the flu vaccine before you left rehab. In another 7-10 days you should get a COVID vaccine. You should also have Pneumovac, an RSV vaccine and Shingrix to prevent shingles. Space these out a little. Avoid sick people at all costs if possible. keep hand distribution operations supervisor in your purse and use it frequently. Sick people cough and sneeze and get the germs on their hands and then they touch things.......like cans in a supermarket, toilet handles, door handles.......use the hand distribution operations supervisor frequently. 6. You should be proud of yourself. Despite being so short of breath you worked hard in therapy and you have done very well. Keep it up as an outpatient. Please read the handouts given to you with the discharge packet.......they have a lot of good information in them about how to keep yourself as healthy as possible. If you or Heriberto have ANY questions after your leave rehab or you find you don't have one of the medications please do not hesitate to call me. OFFICE: [phone] CELL: [phone] NURSES STATION ON REHAB: [phone] Discharge Orders/Prescriptions Prescriptions: New acetaminophen 325 mg Tablet 650 mg PO Q6H PRN PRN (Reason: Pain Score 1-10) Qty: 1 0RF clonazepam 0.5 mg Tablet 0.5 mg PO 0600 30 Days Qty: 30 0RF Rx Instructions: Take this in the AM metformin 500 mg Tablet 500 mg PO BIDCM Qty: 60 0RF ipratropium-albuterol 0.5 mg-3 mg(2.5 mg base)/3 mL Solution For Nebulization 3 ml inhalation Q4H.RT Qty: 180 0RF prednisone 5 mg Tablet 5 mg PO DAILYCM Qty: 30 1RF pantoprazole 40 mg Tablet,Delayed Release (Dr/Ec) 40 mg PO BID Qty: 60 0RF Jardiance 10 mg Tablet 10 mg PO DAILY Qty: 30 0RF Daily Fiber (psyllium-aspart) 3 gram Powder In Packet 1 packet PO DAILY Qty: 60 0RF Rx Instructions: Mix 1 pkt in water and take twice a day sertraline 100 mg Tablet 100 mg PO DAILY Qty: 30 0RF spironolactone 25 mg Tablet 12.5 mg PO [id number] Qty: 30 0RF conjugated estrogens 0.625 mg/gram cream 0.625 mg vaginal .Twice weekly Qty: 30 0RF Rx Instructions: Mondays and Fridays Continued albuterol sulfate 90 mcg/actuation HFA aerosol inhaler 2 puff inhalation Q4H PRN (Reason: sob, wheezing) alendronate 70 mg tablet 70 mg PO QWEEK aspirin 81 mg tablet,chewable 1 tab PO DAILY atorvastatin [Lipitor] 40 mg tablet 40 mg PO QHS Brilinta 90 mg tablet 90 mg PO BID calcium carbonate [Calcium 500] 500 mg calcium (1,250 mg) tablet,chewable 1,000 mg PO DAILY cholecalciferol (vitamin D3) 25 mcg (1,000 unit) capsule 1,000 unit PO DAILY Entresto 49-51 mg tablet 1 tab PO BID ferrous sulfate 325 mg (65 mg iron) tablet 325 mg PO DAILY metoprolol succinate 25 mg tablet extended release 24 hr 25 mg PO DAILY Deep Sea Nasal 0.65 % aerosol,spray 2 spray intranasal Q2H PRN (Reason: dry nasal passages) icosapent ethyl [Vascepa] 1 gram capsule 1 g PO DAILY Breztri Aerosphere 160-9-4.8 mcg/actuation HFA aerosol inhaler 2 inh inhalation BID Discontinued Breztri Aerosphere 160-9-4.8 mcg/actuation HFA aerosol inhaler 2 inh inhalation BID spironolactone 25 mg tablet 12.5 mg PO DAILY nystatin [Nystop] 100,000 unit/gram powder 1 applic topical BID No Action cyanocobalamin (vitamin B-12) 1,000 mcg capsule 1,000 mcg PO DAILY Referrals / Follow Up: [facility] [Other] - 04/24/24 11:[address], Scan [Other] - 04/10/24 11:00 am [facility] [Other] - 03/20/24 1:30 pm Disposition Disposition (needs filled in before D/C Order can be placed): Home Health Service Charges/Coding Visit Charges Inpatient E&M: 87301 Disch Hosp >30min
[2024-02-29 10:14] VITALS: BMI 26.9
[2024-02-29 11:53] VITALS: PULSE 99; RESP 18
[2024-02-29 11:56] LABS: Bedside Glucose 102 mg/dL (74-106)
[2024-02-29] MEDS: Ascorbic Acid 500 MG Tablet PO (12:04)
[2024-02-29] MEDS: Ferrous Sulfate 325 MG Tablet PO (12:05)
== END 2024-02-29 13:30 | disposition home health service (06) | DRG 57 ==
PROVIDERS: Admitting Provider Family Medicine Geriatric Medicine; Visit Provider Internal Medicine
DX: I69.893 Ataxia following other cerebrovascular disease (principal); J44.1 Chronic obstructive pulmonary disease with (acute) exacerbation; E27.3 Drug-induced adrenocortical insufficiency; I50.22 Chronic systolic (congestive) heart failure; I27.20 Pulmonary hypertension, unspecified; G72.3 Periodic paralysis; E11.51 Type 2 diabetes mellitus with diabetic peripheral angiopathy without gangrene; I11.0 Hypertensive heart disease with heart failure; D50.9 Iron deficiency anemia, unspecified; I07.1 Rheumatic tricuspid insufficiency; I69.898 Other sequelae of other cerebrovascular disease; K21.00 Gastro-esophageal reflux disease with esophagitis, without bleeding; E78.2 Mixed hyperlipidemia; E53.8 Deficiency of other specified B group vitamins; E55.9 Vitamin D deficiency, unspecified; I25.10 Atherosclerotic heart disease of native coronary artery without angina pectoris; I25.2 Old myocardial infarction; J04.0 Acute laryngitis; N30.90 Cystitis, unspecified without hematuria; B35.4 Tinea corporis; Z87.891 Personal history of nicotine dependence; F41.0 Panic disorder [episodic paroxysmal anxiety]; Z79.52 Long term (current) use of systemic steroids; Z79.83 Long term (current) use of bisphosphonates; N39.46 Mixed incontinence; Z95.5 Presence of coronary angioplasty implant and graft; F51.04 Psychophysiologic insomnia; Z23 Encounter for immunization; T38.0X Poisoning by, adverse effect of and underdosing of glucocorticoids and synthetic analogues; Z79.899 Other long term (current) drug therapy; R13.12 Dysphagia, oropharyngeal phase; R06.4 Hyperventilation
CPT/HCPCS: 36415; 36600; 71046; 80048; 80053; 81001; 82274; 82728; 82803; 82962; 83036; 83540; 83550; 83735; 83880; 84100; 84439; 84443; 85014; 85018; 85025; 85027; 87077; 87086; 87088; 87186; 87633; 90662; 92523; 92526; 92612; 93005; 94640; 94668; 97110; 97116; 97129; 97130; 97162; 97166; 97530; 97535; 97802; 97803; A4216; J1940

== ENCOUNTER → 2025-02-02 | Outpatient (CLI) | payer MEDICARE, SELFPAY ==
[2025-02-02 18:55] LABS: Mucous, Urine 0 SEEN /hpf (<or=2+)
[2025-02-02 21:02] LABS: Color, Urine Yellow (Yellow); Glucose, Dipstick 1000 mg/dl (Normal); Ketone-Dipstick Negative (Negative); Leukocyte Esterase-Dipstick 100 /ul (Negative); Nitrite-Dipstick Negative (Negative); Protein-Dipstick 15 mg/dl (Negative); Specific Gravity, Urine 1.020 (1.002-1.030); Urine Bilirubin Dipstick Negative (Negative)
[2025-02-02 21:48] LABS: Occult Blood-Urine Negative /ul (Negative)
[2025-02-02 22:51] LABS: Red Blood Cells-Urine 25-50 SEEN /hpf (0-5); Squamous Epithelial Cells - UA 5-10 SEEN /hpf (5-10); Transitional Epithelial - Ur 0-5 SEEN /hpf (0-5); Yeast-Urine 4+ /hpf (None Seen)
== END | disposition home or self-care (01) ==
LOC: LABSPEC 18:53
DX: N39.0 Urinary tract infection, site not specified (principal)
CPT/HCPCS: 81001; 87077; 87086; 87088; 87186

== ENCOUNTER → 2025-03-06 | Outpatient (CLI) | payer MEDICARE, SELFPAY ==
[2025-03-06 13:03] LABS: Mucous, Urine 0 SEEN /hpf (<or=2+)
[2025-03-06 17:31] LABS: Color, Urine Straw (Yellow); Glucose, Dipstick 1000 mg/dl (Normal); Ketone-Dipstick Negative (Negative); Leukocyte Esterase-Dipstick 25 /ul (Negative); Nitrite-Dipstick Negative (Negative); Occult Blood-Urine Negative /ul (Negative); Protein-Dipstick Negative (Negative); Specific Gravity, Urine 1.005 (1.002-1.030); Urine Bilirubin Dipstick Negative (Negative)
[2025-03-06 22:21] LABS: Red Blood Cells-Urine 0-5 SEEN /hpf (0-5); Squamous Epithelial Cells - UA 0-5 SEEN /hpf (5-10)
[2025-03-06 22:22] LABS: Yeast-Urine 1+ /hpf (None Seen)
== END | disposition home or self-care (01) ==
LOC: LABSPEC 12:58
DX: N39.0 Urinary tract infection, site not specified (principal)
CPT/HCPCS: 81001; 87077; 87086; 87088; 87186

== ENCOUNTER → 2025-04-10 | Outpatient (CLI) | payer MEDICARE, SELFPAY ==
[2025-04-10 16:49] LABS: Hematocrit 35.4 % (37-47); Hemoglobin 10.7 g/dL (12.0-15.0); Immature Granulocytes Count 0.170 X10^3/uL (0.0-0.0); Mean Corp Hgb Conc 30.2 g/dL (32-36); Mean Corpuscular Volume 95.2 fL (81-99); Mean Platelet Vol. 10.6 fl (6.2-12.0); NRBC Flagged by Analyzer 0 % (0-5); Platelet Count 371 K/mm3 (150-450); RBC Distribution Width CV 14.0 % (11.6-14.6); RBC Distribution Width SD 48.7 fl (35.1-43.9); Red Blood Count 3.72 M/mm3 (4.2-5.4); White Blood Count 11.0 K/mm3 (4.4-11.0)
[2025-04-10 17:45] LABS: AST(SGOT) 18 U/L (<=31); Alanine Aminotransfer ALT/SGPT 18 U/L (<=34); Albumin, Serum 4.1 g/dL (3.4-4.8); Alkaline Phosphatase 67 U/L (35-104); Anion Gap 9 (5-15); BUN 14 mg/dL (4-19); BUN/Creat Ratio 16.3 RATIO (10-20); Calcium,Total 10.3 mg/dL (7.6-11.0); Carbon Dioxide 29.4 mmol/L (21.0-32.0); Chloride 99 mmol/L (98-108); Globulin 2.3 g/dL (2.2-4.2); Glucose 96 mg/dL (70-99); Magnesium 1.8 mg/dL (1.5-2.2); Potassium 4.6 mmol/L (3.3-5.1)
== END | disposition home or self-care (01) ==
LOC: VSLAB 14:28
PROVIDERS: Referring Provider Nurse Practitioner Family; Visit Provider Nurse Practitioner Family
DX: E11.9 Type 2 diabetes mellitus without complications (principal); I50.30 Unspecified diastolic (congestive) heart failure; E83.42 Hypomagnesemia
CPT/HCPCS: 36415; 80053; 83036; 83735; 84443; 85025